=== PATIENT | female | born 1955 | race Caucasian/White ===

== ENCOUNTER 2017-01-04 08:47 | Emergency (ER) | payer OTHER, MEDICAID ==
[~2017-01-04] VITALS: Wt 79.0 kg
[~2017-01-04 08:47] MED LIST: AMIT25TA9 PO; ASPI-535 PO; BENA5TAB2 PO; GLIM4TAB PO; MTF1000T PO; PANT40TA4 PO; SIMV40TA2 PO; SITA50TA2 PO
[2017-01-04 09:13] LABS: URINE BLOOD (Dip) POC Trace-intact (NEGATIVE)
--- NOTE | 2017-01-04 09:29 | ERD ---
ER Documentation Chief Complaint Date/Time DATE: 01/04/17 TIME: 09:25 Chief Complaint DYSURIA FOR THE PAST 4 DAYS. NO HEMATURIA. MORE FREQUENCY STATED HPI 61-year-old female who presents to the emergency room for dysuria for about 4 days. Stated that she has been prescribed Bactrim last 01/02/2017. Denies headache, loss of consciousness, dizziness, blurry vision, changes in vision, photophobia, facial pain, ear pain, throat pain, difficulty swallowing, neck pain, shoulder pain, chest pain, cough, hemoptysis, abdominal pain, back pain, loss of appetite, nausea, vomiting, hematochezia, diarrhea, constipation, hematuria, bladder and bowel incontinences, extremity weakness, extremity tenderness, numbness or tingling sensation, direct trauma, difficulty walking, recent travel, recent exposure to illness, recent antibiotic use in the last 3 months, fever, chills. Allergy: Penicillin. PMH: Diabetes, hypertension. Family medical history: Denies. Medications: Metformin, metoprolol, benazepril, simvastatin, aspirin. Surgery: Cholecystectomy, hysterectomy. Primary Social History: Not working at this time. Denies smoking, use of alcohol, use of illegal drugs. ROS All systems reviewed and are negative except as per history of present illness. Medications Home Meds Active Scripts Phenazopyridine Hcl* (Pyridium*) 200 Mg Tab, 200 MG PO TID Y for URINARY PAIN, # 6 TAB Prov:RACHEL JUAREZ 01/04/17 Ciprofloxacin Hcl* (Ciprofloxacin Hcl*) 500 Mg Tablet, 500 MG PO BID for 7 Days , TAB Prov:RACHEL JUAREZ 01/04/17 Sitagliptin* (Januvia*) 50 Mg Tablet, 50 MG PO DAILY, #30 TAB Prov:MYRA MALDONADO MD 06/25/16 Pantoprazole* (Pantoprazole*) 40 Mg Tablet.dr, 40 MG PO DAILY@06 for 30 Days, # 30 Prov:MYRA MALDONADO MD 06/25/16 Reported Medications Metformin* (Glucophage*) 1,000 Mg Tablet, 1000 MG PO BID, #60 TAB 06/23/16 Glimepiride* (Glimepiride*) 4 Mg Tablet, 4 MG PO BID, TAB 02/09/16 Amitriptyline Hcl* (Amitriptyline Hcl*) 25 Mg Tablet, 25 MG PO HS, TAB 09/20/14 Benazepril Hcl* (Benazepril Hcl*) 5 Mg Tablet, 5 MG PO DAILY 11/04/11 Aspirin Ec (Aspir 81) 81 Mg Tablet.dr, 81 MG PO DAILY 11/04/11 Simvastatin* (Zocor*) 40 Mg Tablet, 40 MG PO DAILY 11/04/11 Allergies Allergies: Coded Allergies: Penicillins (Verified Allergy, Unknown, 01/04/17) PMhx/Soc History of Surgery: Yes (PARTIAL HYSTERECTOMY 1989, GALLBLADDER SURGERY, MULTIPLE HAND SURGERIES ) Anesthesia Reaction: No Hx Neurological Disorder: No Hx Respiratory Disorders: No Hx Cardiac Disorders: No Hx Psychiatric Problems: No Hx Miscellaneous Medical Probl: No Hx Alcohol Use: No Hx Substance Use: No Hx Tobacco Use: No Smoking Status: Never smoker Physical Exam Vitals Vital Signs Date Time Temp Pulse Resp B/P Pulse Ox O2 Delivery O2 Flow Rate FiO2 01/04/17 08:51 97.0 72 21 122/65 98 Physical Exam CONSTITUTIONAL: Well-appearing; well-nourished. HEAD: Normocephalic; atraumatic. EYES: Conjunctiva clear, sclera non-icteric, EOM intact. PERRL Ears: Hearing intact. EACs clear, TMs non-bulging, non-inflamed, translucent & mobile, ossicles normal appearance, No obstructions, no erythema, no discharges Nose: No obstructions. No polyps. No external lesions. Mucosa non-inflamed. No external lesions, septum and turbinates normal. No rhinorrhea. No discharges. Frontal sinus is non-tender to palpation. Maxillary sinus is non-tender to palpation. MOUTH: Moist mucous membranes, no lesion, no obstructions, no vesicles, no thrush, patent airway Throat: Uvula in midline. Right tonsil is +1 with no erythema, no exudate. Left tonsil is +1 with no erythema, no exudate. Tolerating secretions well. Good gag reflex. Patent airway. Neck: Supple, without lesions, bruits, or adenopathy. No mass. Thyroid non- enlarged and non-tender to palpation. CHEST: Symmetrical chest. Respirations even and not labored. No retractions noted. CARDIOVASCULAR: Normal S1, S2. RRR. No murmurs, gallops. RESPIRATORY: Normal chest excursion with respiration; breath sounds clear and equal bilaterally; no wheezes, rhonchi, or rales. Breathing even and unlabored. Speaking in clear, full, and complete sentences w/ ease. ABDOMEN: Normal bowel sounds normal. Soft, round, non-distended, non-guarding, no tenderness, no rebound, no organomegaly, no masses, no pulsating abdominal mass. No hernia. No peritoneal signs. Able to jump 5 times without pain to right lower abdomen. : No CVA tenderness. Has suprapubic tenderness. BACK: Symmetrical shoulder. Spine is midline without deformity, tenderness. No evidence of trauma or deformity. PELVIS: Stable pelvis. No evidence of trauma or deformity. MUSCULOSKELETAL: Normal gait and station. No misalignment, asymmetry, crepitation, defects, tenderness, masses, effusions, decreased range of motion, instability, atrophy or abnormal strength or tone in the head, neck, spine, ribs , pelvis or extremities. No calf tenderness. NEUROVASCULAR: Distal pulses are present. Pedal pulse are present, equal, and normal. Capillary refills are < 2 seconds. NEUROLOGIC: Alert and oriented x4. Speaks full and clear sentences. Cranial Nerves II-XII normal. Sensation to pain, touch, and proprioception normal. Grossly unremarkable. No neurologic deficits. Romberg test is negative. PSYCHOLOGICAL: The patients mood and manner are appropriate. No hallucinations , delusions. Not SI. Not HI. Has the capacity to decide for self SKIN: Normal for age and ethnicity; warm; dry; good turgor; no apparent lesions or exudates. No rashes, hives, discoloration. Intact. Results 24 hrs Laboratory Tests Test 01/04/17 09:10 01/04/17 09:13 Urine Color LT. YELLOW Urine Clarity CLEAR Urine pH 6.0 Urine Specific Eloy 1.025 Urine Ketones NEGATIVE Urine Nitrite NEGATIVE Urine Bilirubin NEGATIVE Urine Urobilinogen 0.2 E.U./dL Urine Leukocyte Esterase 1+ Urine Microscopic RBC 0-2/HPF Urine Microscopic WBC 5-10/HPF Urine Squamous Epithelial Cells FEW Urine Bacteria FEW Urine Hemoglobin NEGATIVE Urine Glucose NEGATIVE% Urine Total Protein TRACE Bedside Urine pH (LAB) 6.0 Bedside Urine Protein (LAB) 1+ Bedside Urine Glucose (UA) Negative Bedside Urine Ketones (LAB) Negative Bedside Urine Blood Trace-intact Bedside Urine Nitrite (LAB) Negative Bedside Urine Leukocyte Esterase (L 2+ Procedures/MDM Examination: Please see physical examination. Disease process, medical treatment was explained to the patient and family member. They verbalized understanding and agreed with the diagnostic tests, medical treatment, and follow-up care. Urinalysis: Reviewed. Treatment: None. Re-evaluation: Denies headache, dizziness, neck pain, chest pain, back pain, shoulder pain abdominal pain, back pain, pelvic pain. No nausea and vomiting. No right upper abdominal pain on palpation. No right lower abdominal pain on palpation. Patient ambulatory with steady gait and without pain to abdomen when walking. No peritoneal signs. Lung sounds are clear to auscultation. No neurological deficits. Consultation: None. Differential diagnosis: Pyelonephritis versus urinary tract infection versus complicated UTI versus dysuria Medical decision makin-year-old female who presents to the emergency room for dysuria for about 4 days. Stated that she has been prescribed Bactrim last . Patient's complaint, patient's history about her complaint, my physical findings, diagnostic test results, my reevaluation are consistent with my final diagnosis of urinary tract infection, dysuria. Medications prescribed are the following: Ciprofloxacin. Pyridium. Patient and family member are made aware of the side effects and adverse reactions of the medications prescribed. Instructed on when to seek emergent and medical attention in case allergic/anaphylactic reactions or severe side effects and or adverse reactions to medications. Patient and family member verbalized understanding. Patient was also instructed that she might notice a discoloration of urine due to Pyridium. Patient instructed Instructed to follow-up with his PCP in 24-48 hours. Stated that she will see her PCP in the next 24 hours. Instructed to Call 911 for chest pain, shortness of breath. Advised to come back here in ED as soon as possible for severity of symptoms which includes but not limited to: any new symptoms; shortness of breath/difficulty of breathing; cardiovascular changes; severe gastrointestinal symptoms; signs and symptoms of bleeding and or infection; signs of compartment syndrome/neurovascular changes; neurological changes/deficits. Patient and family member verbalized understanding. Upon discharge, patient is alert and oriented x 4, speaks full and clear sentences, denies pain, has no neurological deficits, has no neurovascular deficits, difficulty of breathing. Breathing even and unlabored. Lung sounds are clear to auscultation. Not in distress. Appears comfortable. Ambulatory with steady gait. Appears satisfied with care provided here in ED. Departure Diagnosis: Primary Impression: Dysuria Additional Impression: UTI (lower urinary tract infection) Condition: Good Additional Instructions: Patient instructed Instructed to follow-up with his PCP in 24-48 hours. Stated that she will see her PCP in the next 24 hours. Instructed to Call 911 for chest pain, shortness of breath. Advised to come back here in ED as soon as possible for severity of symptoms which includes but not limited to: any new symptoms; shortness of breath/difficulty of breathing; cardiovascular changes; severe gastrointestinal symptoms; signs and symptoms of bleeding and or infection; signs of compartment syndrome/neurovascular changes; neurological changes/deficits. Patient and family member verbalized understanding. RACHEL JUAREZ Jan 04, 2017 09:29
[2017-01-04 09:44] LABS: ADD UMIC YES; URINE BILIRUBIN (Dip) NEGATIVE (NEGATIVE); URINE BLOOD (Dip) NEGATIVE (NEGATIVE); URINE COLOR LT. YELLOW (YELLOW); URINE GLUCOSE (Dip) NEGATIVE (NEGATIVE); URINE KETONES (Dip) NEGATIVE (NEGATIVE); URINE LEUKOCYTE ESTERASE (Dip) 1+ (NEGATIVE); URINE NITRITE (Dip) NEGATIVE (NEGATIVE); URINE TOTAL PROTEIN (Dip) TRACE (NEGATIVE); URINE UROBILINOGEN (Dip) 0.2 E.U./dL (0.1-1.0)
[2017-01-04 09:55] LABS: BACTERIA,URINE FEW; SQUAMOUS EPITHELIAL CELL,UR FEW; URINE RBCS 0-2 /HPF (0)
[2017-01-04] MEDS ORDERED: CIPR500T4 PO (10:19)
[2017-01-04] MEDS ORDERED: PHEN-538 PO (10:20)
== END 2017-01-04 10:25 | disposition home or self-care (01) ==
LOC: FTE 08:47
DX: R30.0 Dysuria (principal); N39.0 Urinary tract infection, site not specified; I10 Essential (primary) hypertension; E11.9 Type 2 diabetes mellitus without complications; Z79.82 Long term (current) use of aspirin; Z79.84 Long term (current) use of oral hypoglycemic drugs
CPT/HCPCS: 81001; 81003; 87086; 99283

== ENCOUNTER 2017-05-22 06:39 | Emergency (ER) | payer OTHER ==
[~2017-05-22] VITALS: Ht 152.4 cm; Wt 77.0 kg
[~2017-05-22 06:39] MED LIST changes: +CIPR500T4 PO; +PHEN-538 PO
[2017-05-22 06:41] VITALS: Ht 152.4 cm; Wt 77.0 kg
--- NOTE | 2017-05-22 07:55 | RADRPT ---
PROCEDURE: LEFT knee x-ray CLINICAL INDICATION: fall - knee pain TECHNIQUE: AP, lateral, and oblique views of the knee were obtained. COMPARISON: None FINDINGS: No acute fracture or dislocation is seen. There is normal mineralization. There are no significant degenerative changes. There is no joint effusion. There is no significant soft tissue swelling. IMPRESSION: Unremarkable plain radiographs of the left knee. RPTAT: EE Physician Jg Date Time Electronically viewed and signed by Fran Clark Physician on 05/22/2017 07:55 /
[2017-05-22] MEDS ORDERED: NAPR-260 PO (08:09)
--- NOTE | 2017-05-22 08:32 | ERD ---
ER Documentation Chief Complaint Date/Time DATE: 05/22/17 TIME: 08:26 Chief Complaint pt bib family with c/o left knee pain, s/p [facility] trip and fall yesterday, HPI 61-year-old female coming in complaining of left knee pain after she fell off a roof yesterday. She states that her knee twisted. Her pain is worse with ambulation. She has not taken any medications for her pain. Rates the pain a 9 out of 10. Pain is sharp. She has used icy hot with no alleviation of symptoms. She has no previous history of knee injury in the past. Medical history: Diabetes, hypercholesterolemia, hypertension Allergies to medications: Penicillin ROS All systems reviewed and are negative except as per history of present illness. Medications Home Meds Active Scripts Naproxen* (Naprosyn*) 500 Mg Tablet, 500 MG PO BID Y for PAIN AND/OR INFLAMMATION, #30 TAB Prov:KYLAH DOE PA-C 05/22/17 Phenazopyridine Hcl* (Pyridium*) 200 Mg Tab, 200 MG PO TID Y for URINARY PAIN, # 6 TAB Prov:RACHEL JUAREZ 01/04/17 Ciprofloxacin Hcl* (Ciprofloxacin Hcl*) 500 Mg Tablet, 500 MG PO BID for 7 Days , TAB Prov:RACHEL JUAREZ 01/04/17 Sitagliptin* (Januvia*) 50 Mg Tablet, 50 MG PO DAILY, #30 TAB Prov:MYRA MALDONADO MD 06/25/16 Pantoprazole* (Pantoprazole*) 40 Mg Tablet.dr, 40 MG PO DAILY@06 for 30 Days, # 30 Prov:MYRA MALDONADO MD 06/25/16 Reported Medications Metformin* (Glucophage*) 1,000 Mg Tablet, 1000 MG PO BID, #60 TAB 06/23/16 Glimepiride* (Glimepiride*) 4 Mg Tablet, 4 MG PO BID, TAB 02/09/16 Amitriptyline Hcl* (Amitriptyline Hcl*) 25 Mg Tablet, 25 MG PO HS, TAB 09/20/14 Benazepril Hcl* (Benazepril Hcl*) 5 Mg Tablet, 5 MG PO DAILY 11/04/11 Aspirin Ec (Aspir 81) 81 Mg Tablet.dr, 81 MG PO DAILY 11/04/11 Simvastatin* (Zocor*) 40 Mg Tablet, 40 MG PO DAILY 11/04/11 Allergies Allergies: Coded Allergies: Penicillins (Verified Allergy, Unknown, 01/04/17) PMhx/Soc History of Surgery: Yes (Gallbladder, Bilateral Eye, Bilateral Wrist) Anesthesia Reaction: No Hx Neurological Disorder: No Hx Respiratory Disorders: No Hx Cardiac Disorders: Yes (HTN, HLD) Hx Psychiatric Problems: No Hx Miscellaneous Medical Probl: Yes (DM) Hx Alcohol Use: No Hx Substance Use: No Hx Tobacco Use: No Smoking Status: Never smoker Physical Exam Vitals Vital Signs Date Time Temp Pulse Resp B/P Pulse Ox O2 Delivery O2 Flow Rate FiO2 05/22/17 06:41 98.3 62 16 115/57 100 Physical Exam GENERAL: The patient is well-appearing, well-nourished, in no acute distress CHEST: Clear to auscultation bilaterally. There are no rales, wheezes or rhonchi. HEART: Regular rate and rhythm. No murmurs, clicks, rubs or gallops. No S3 or S4. EXTREMITIES: Equal pulses bilaterally. There is no peripheral clubbing, cyanosis or edema. No focal swelling or erythema. Full range of motion. Grossly neurovascularly intact. Tender to palpation over the medial aspect of the left knee. No valgus or varus deformity. Decreased strength secondary to pain. No obvious deformity to the left knee. No tenderness to palpation of the left patella. NEUROLOGIC: Alert and oriented. Cranial nerves II through XII intact. Motor strength in all 4 extremities with 5 out of 5 strength. Sensation grossly intact. Normal speech and gait. Babinski negative. DTR 2+ throughout. SKIN: There is no apparent rash or petechiae. The skin is warm and dry. Procedures/MDM DIAGNOSTIC IMAGING REPORT Patient: RANI OROZCO : 1955 Age: 61 Sex: F MR #: [id number] DOS: 05/22/17 0719 Ordering MD: ABBIE DOE PA-C Location: [facility] Room/Bed: PROCEDURE: LEFT knee x-ray CLINICAL INDICATION: fall - knee pain TECHNIQUE: AP, lateral, and oblique views of the knee were obtained. COMPARISON: None FINDINGS: No acute fracture or dislocation is seen. There is normal mineralization. There are no significant degenerative changes. There is no joint effusion. There is no significant soft tissue swelling. IMPRESSION: Unremarkable plain radiographs of the left knee. ER Course: Knee immobilizer and crutches given to the ED patient. Patient was neuro intact pre-and post immobilizer application. MDM: 61-year-old female complaining of left knee pain after fall yesterday. I have low suspicion for acute fracture dislocation. I have low suspicion for tendon or ligament rupture or injury. I have low suspicion for vascular injury. Patient's x-rays are within normal limits and exam is within normal limits. Patient likely sustained a knee contusion. She will be placed in the immobilizer and recommend follow-up with orthopedics within 1-2 days for close evaluation. Patient is told symptoms change or worsen to return to the ER. All questions answered at time of discharge. Patient is discharged with pain medication. Departure Diagnosis: Primary Impression: Knee pain Condition: Stable Patient Instructions: Knee Sprain Referrals: [facility] YOU HAVE RECEIVED A MEDICAL SCREENING EXAM AND THE RESULTS INDICATE THAT YOU DO NOT HAVE A CONDITION THAT REQUIRES URGENT TREATMENT IN THE EMERGENCY DEPARTMENT. FURTHER EVALUATION AND TREATMENT OF YOUR CONDITION CAN WAIT UNTIL YOU ARE SEEN IN YOUR DOCTORS OFFICE WITHIN THE NEXT 1-2 DAYS. IT IS YOUR RESPONSIBILITY TO MAKE AN APPOINTMENT FOR FOLOW-UP CARE. IF YOU HAVE A PRIMARY DOCTOR --you should call your primary doctor and schedule an appointment IF YOU DO NOT HAVE A PRIMARY DOCTOR YOU CAN CALL OUR PHYSICIAN REFERRAL HOTLINE AT IF YOU CAN NOT AFFORD TO SEE A PHYSICIAN YOU CAN CHOSE FROM THE FOLLOWING [facility] [address] [facility]. [facility] [address] [facility] [address] [facility]. [facility] [address] [facility]. [facility] [address] [facility]. [facility]. [address] Additional Instructions: FOLLOW UP WITH YOUR PRIMARY CARE PHYSICIAN TOMORROW.Return to this facility if you are not improving as expected. KYLAH DOE PA-C May 22, 2017 08:32
== END 2017-05-22 08:34 | disposition home or self-care (01) ==
LOC: FTE 06:39
DX: M25.562 Pain in left knee (principal); I10 Essential (primary) hypertension; E11.9 Type 2 diabetes mellitus without complications; Z79.82 Long term (current) use of aspirin; Z79.84 Long term (current) use of oral hypoglycemic drugs
CPT/HCPCS: 73562

== ENCOUNTER 2018-05-24 12:08 | Emergency (ER) | END 2018-05-24 15:00 | disposition home or self-care (01) ==

== ENCOUNTER 2019-01-13 18:01 | Emergency (ER) | payer OTHER ==
[~2019-01-13] VITALS: Ht 152.4 cm; Wt 71.2 kg
[~2019-01-13 18:01] MED LIST changes: -BENA5TAB2 PO; +BENA5TAB33 PO; +IBUP-1542 PO; +NAPR-985 PO; +ONDA4TAB13 PO
[2019-01-13 18:21] VITALS: Ht 152.4 cm; Wt 71.2 kg
[2019-01-13] MEDS ORDERED: ONDANSETRON 4 MG INJ IV STA ×2 (20:54→21:02)
[2019-01-13] MEDS ORDERED: SOD CHLORIDE 0.9% 1,000 ML IV STA (21:02)
[2019-01-13] MEDS ORDERED: LIRA0.6P2 SQ (21:19)
[2019-01-13] MEDS ORDERED: LATA2.5D2 BOTH EYES (21:19)
[2019-01-13] MEDS ORDERED: TIMO5DRO30 BOTH EYES (21:19)
[2019-01-13] MEDS ORDERED: INSU100I33 SQ (21:19)
[2019-01-13] MEDS ORDERED: SERT25TA83 PO (21:19)
[2019-01-13] MEDS ORDERED: NOVO3I SC (21:20)
[2019-01-13] MEDS ORDERED: IBUPROFEN 600 MG TAB PO ONE (21:30)
[2019-01-13] MEDS ORDERED: CEPH-443 PO (22:15)
[2019-01-13] MEDS ORDERED: ONDA4TAB8 PO (22:15)
[2019-01-13] MEDS ORDERED: LIDOCAINE/MYLANTA 40 ML BTL PO STA (22:22)
[2019-01-13] MEDS ORDERED: BELLADONNA/PHENOBARBITAL TAB PO STA (22:22)
--- NOTE | 2019-01-13 22:25 | ERD ---
ER Documentation Chief Complaint Chief Complaint c/o ap, n/v and diarrhea since this morning. +TYSON hx dm. BS 129 HPI This is a 63-year-old with multiple complaints here today including mostly a few episodes of clear nonbloody nonbilious emesis and diarrhea beginning today as well as sharp nonexertional non-epigastric abdominal pain which she has had multiple times in the past and 1 day of dysuria and increased urinary frequency. She also states she feels weak and has a headache. She denies fevers or chills, no loss of consciousness, no vaginal discharge, no complaints of chest pain or shortness of breath ROS All systems reviewed and are negative except as per history of present illness. Medications Home Meds Active Scripts Ondansetron Hcl* (Zofran*) 4 Mg Tablet, 4 MG PO Q8H PRN for NAUSEA AND/OR VOMITING, #20 TAB Prov:BA BLACKWELL MD 01/13/19 Cephalexin* (Keflex*) 500 Mg Capsule, 500 MG PO QID for 5 Days, CAP Prov:BA BLACKWELL MD 01/13/19 Ondansetron Hcl* (Zofran*) 4 Mg Tab, 4 MG PO Q6H PRN for NAUSEA AND OR VOMITING, #30 TAB Prov:ANGELIA LISA DO 05/24/18 Pantoprazole* (Pantoprazole*) 40 Mg Tablet., 40 MG PO DAILY@06 for 30 Days, #30 Prov:MYRA MALDONADO MD 06/25/16 Reported Medications Insulin Aspart* (Novolog Insulin Pen*) 100 Unit/Ml Soln, 10 UNIT SC WITH MEALS, EA 01/13/19 Timolol Maleate* (Timoptic*) 0.5%-5ml Opht, 1 DROP BOTH EYES BID, #1 EA 01/13/19 Latanoprost (Latanoprost) 2.5 Ml Drops, 1 DROP BOTH EYES QHS, #1 BOTTLE 01/13/19 Insulin Glargine,Hum.rec.anlog (Basaglar Kwikpen U-100) 100 Unit/1 Ml Insuln.pen, 30 UNIT SQ QPM NJECT 30 UNITS BY SUBCUTANEOUS ROUTE EVERY EVENING 01/13/19 Liraglutide (Victoza 3-Darin) 0.6 Mg/0.1 Ml Pen.injctr, 1.2 MG SQ DAILY, SYR 01/13/19 Sertraline Hcl* (Sertraline Hcl*) 25 Mg Tablet, 25 MG PO QHS for 90 Days, #90 01/13/19 Metformin* (Glucophage*) 1,000 Mg Tablet, 1000 MG PO BID, #60 TAB 06/23/16 Amitriptyline Hcl* (Amitriptyline Hcl*) 25 Mg Tablet, 25 MG PO HS, TAB 09/20/14 Benazepril Hcl* (Benazepril Hcl*) 5 Mg Tablet, 5 MG PO DAILY 11/04/11 Simvastatin* (Zocor*) 40 Mg Tablet, 40 MG PO DAILY 11/04/11 Discontinued Reported Medications Glimepiride* (Glimepiride*) 4 Mg Tablet, 4 MG PO BID, TAB 02/09/16 Aspirin Ec (Aspir 81) 81 Mg Tablet.dr, 81 MG PO DAILY 11/04/11 Discontinued Scripts Ibuprofen* (Ibuprofen*) 600 Mg Tablet, 600 MG PO Q6H PRN for PAIN, #30 TAB Prov:ANGELIA LISA DO 05/24/18 Naproxen* (Naprosyn*) 500 Mg Tablet, 500 MG PO BID PRN for PAIN AND/OR INFLAMMATION, #30 TAB Prov:KYLAH DOE PA-C 05/22/17 Phenazopyridine Hcl* (Pyridium*) 200 Mg Tab, 200 MG PO TID PRN for URINARY PAIN, #6 TAB Prov:RACHEL JUAREZ 01/04/17 Ciprofloxacin Hcl* (Ciprofloxacin Hcl*) 500 Mg Tablet, 500 MG PO BID for 7 Days, TAB Prov:RACHEL JUAREZ 01/04/17 Sitagliptin* (Januvia*) 50 Mg Tablet, 50 MG PO DAILY, #30 TAB Prov:MYRA MALDONADO MD 06/25/16 Allergies Allergies: Coded Allergies: Penicillins (Verified Allergy, Unknown, 01/13/19) PMhx/Soc Hypertension, diabetes mellitus, history of cholecystectomy, gastritis History of Surgery: Yes (Gallbladder, Bilateral Eye, Bilateral Wrist) Anesthesia Reaction: No Hx Neurological Disorder: No Hx Respiratory Disorders: No Hx Cardiac Disorders: Yes (HTN, HLD) Hx Psychiatric Problems: No Hx Miscellaneous Medical Probl: Yes (DM) Hx Alcohol Use: No Hx Substance Use: No Hx Tobacco Use: No Smoking Status: Never smoker Physical Exam Vitals Vital Signs Date Temp Pulse Resp B/P (MAP) Pulse Ox O2 O2 Flow FiO2 Time Delivery Rate 01/13/19 99.8 77 12 103/65 98 Room Air 21:24 (78) 01/13/19 37.7 21:15 01/13/19 99.8 86 12 109/67 98 Room Air 20:46 (81) 01/13/19 100.9 95 20 135/61 97 18:21 (85) Physical Exam GENERAL: Well-developed, well-nourished, well-hydrated, febrile HEENT: Moist mucous membranes, pink conjunctiva, no cervical spine tenderness or step-off deformities, no goiter, no jaundice or icterus, extraocular movements intact without pain. No submandibular induration, and no pharyngeal erythema NEURO: Alert and oriented 3, cranial nerves II through XII intact bilaterally, pupils equal round reactive to light, no focal deficits or facial asymmetry, sensation intact distally Strength 5/5 in upper and lower extremities bilaterally CARDIAC: Regular rate and rhythm, no murmurs rubs or gallops LUNGS: Clear bilaterally no wheezing crackles or stridor ABDOMEN: Soft nontender, no guarding, no rigidity, no rebound, no psoas sign no obturator sign. Normoactive bowel sounds SKIN: Warm and dry to touch, no abrasions, contusions, or hematomas, no lacerations, no ecchymosis, no target lesions, and without ulcers EXTREMITIES: No clubbing cyanosis or edema, calves are bilaterally symmetrical, no Homans sign, no popliteal cord sign. Distal pulses equal and bilateral PSYCH: Normal affect without agitation or irritability Result Diagram: 01/13/19204401/13/192044 Results 24 hrs Laboratory Tests Test 01/13/19 18:23 01/13/19 20:45 Bedside Glucose 129 mg/dL White Blood Count 10.7 10^3/ul Red Blood Count 4.66 10^6/ul Hemoglobin 13.9 g/dl Hematocrit 41.7 % Mean Corpuscular Volume 89.5 fl Mean Corpuscular Hemoglobin 29.8 pg Mean Corpuscular Hemoglobin Concent 33.3 g/dl Red Cell Distribution Width 13.2 % Platelet Count 149 10^3/UL Mean Platelet Volume 12.0 fl Immature Granulocytes % 0.400 % Neutrophils % 82.7 % Lymphocytes % 11.7 % Monocytes % 4.0 % Eosinophils % 0.9 % Basophils % 0.3 % Nucleated Red Blood Cells % 0.0 /100WBC Immature Granulocytes # 0.040 10^3/ul Neutrophils # 8.8 10^3/ul Lymphocytes # 1.3 10^3/ul Monocytes # 0.4 10^3/ul Eosinophils # 0.1 10^3/ul Basophils # 0.0 10^3/ul Nucleated Red Blood Cells # 0.0 10^3/ul Urine Color YELLOW Urine Clarity SLIGHTLY CLOUDY Urine pH 5.0 Urine Specific [place] 1.027 Urine Ketones TRACE mg/dL Urine Nitrite NEGATIVE mg/dL Urine Bilirubin NEGATIVE mg/dL Urine Urobilinogen NEGATIVE mg/dL Urine Leukocyte Esterase 2+ Max/ul Urine Microscopic RBC 2 /HPF Urine Microscopic WBC 28 /HPF Urine Squamous Epithelial Cells FEW /HPF Urine Mucus FEW /HPF Urine Hemoglobin 1+ mg/dL Urine Glucose NEGATIVE mg/dL Urine Total Protein NEGATIVE mg/dl Sodium Level 139 mmol/L Potassium Level 4.0 mmol/L Chloride Level 99 mmol/L Carbon Dioxide Level 25 mmol/L Anion Gap 15 Blood Urea Nitrogen 18 mg/dl Creatinine 0.56 mg/dl Est Glomerular Filtrat Rate mL/min > 60 mL/min Glucose Level 210 mg/dl Calcium Level 9.8 mg/dl Total Bilirubin 0.5 mg/dl Direct Bilirubin 0.00 mg/dl Indirect Bilirubin 0.5 mg/dl Aspartate Amino Transf (AST/SGOT) 52 IU/L Alanine Aminotransferase (ALT/SGPT) 40 IU/L Alkaline Phosphatase 89 IU/L Total Protein 7.8 g/dl Albumin 4.7 g/dl Globulin 3.10 g/dl Albumin/Globulin Ratio 1.51 Lipase 70 U/L Current Medications Medications Dose Sig/Shaun Start Time Status Last (Trade) Ordered Route PRN Stop Time Admin Dose Reason Admin Ondansetron 4 mg ONCE STAT 01/13/19 DC HCl (Zofran IV 20:54 01/13/19 Inj) 20:57 Sodium 1,000 ml @ Q1H STAT 01/13/19 DC 01/13/19 Chloride 1,000 mls/hr IV 21:02 01/13/19 21:11 22:01 Ondansetron 4 mg ONCE STAT 01/13/19 DC 01/13/19 HCl (Zofran IV 21:02 01/13/19 21:15 Inj) 21:04 Ibuprofen 600 mg ONCE ONCE 01/13/19 DC 01/13/19 (Motrin) PO 21:30 01/13/19 21:15 21:31 Ceftriaxone 50 ml @ ONCE ONCE 01/13/19 UNV Sodium 100 mls/hr IVPB 22:30 01/13/19 22:59 Procedures/MDM IV line was established patient was placed on shelter monitor rhythm strip reve aled a sinus rhythm at about 80 bpm with upright P and T waves. Patient was afebrile I administered 1 L normal saline IV, Zofran 4 mg IV, ibuprofen 600 mg p.o. x1. EKG performed, read by me: 77 bpm, normal sinus rhythm, normal axis, no acute ST segment changes, narrow QRS complex, with good R-wave progression in precordial leads. CBC was within normal limits, electrolytes revealed mild dehydration, liver function tests normal, urinalysis positive for infection. Patient did have mild sharp abdominal pain which she has had in the past and I administered GI cocktail p.o., I also administered ceftriaxone 1 g IV for acute UTI. I suspect her symptoms are mostly caused by her acute urinary tract infection and she will be discharged with a antibiotic prescription and recommendations for follow-up and return precautions. Differential diagnoses considered, included but not limited to acute coronary syndrome, pulmonary embolism, aortic dissection, abdominal aortic aneurysm, sepsis, stroke, meningitis, encephalitis, pneumonia, appendicitis, cholecystitis, bowel obstruction, pyelonephritis, nephrolithiasis, cystitis, as well as metabolic, hematologic, and electrolyte abnormalities. As well as abscess, cellulitis, fractures, and dislocations. Patient feels much better at this time, and vital signs are normal, symptoms have improved. I did give strict instructions to return to the ED if symptoms continue or worsen, patient will otherwise follow-up with primary care physician. Patient understood instructions and agreed to plan. Disclaimer: Inadvertent spelling and grammatical errors are likely due to EHR/dictation software use and do not reflect on the overall quality of patient care. Also, please note that the electronic time recorded on this note does not necessarily reflect the actual time of the patient encounter. Departure Diagnosis: Primary Impression: UTI (lower urinary tract infection) Additional Impressions: Vomiting and diarrhea Epigastric abdominal pain Condition: Good Patient Instructions: Bladder Infection, Female (Adult) ZOHRABIAN,BA MD Jan 13, 2019 22:25
[2019-01-13] MEDS ORDERED: CEFTRIAXONE 1 GM/50 ML (PMX) 50 ML IVPB ONE (22:30)
[2019-01-13 22:56] VITALS: BP 92/66; PULSE 84; RESP 12
== END 2019-01-13 23:40 | disposition home or self-care (01) ==
LOC: E/R 18:01
DX: N39.0 Urinary tract infection, site not specified (principal); R19.7 Diarrhea, unspecified; I10 Essential (primary) hypertension; E11.9 Type 2 diabetes mellitus without complications; Z79.4 Long term (current) use of insulin
CPT/HCPCS: 36415; 80053; 81001; 82962; 83690; 85025; 87086; 93005; 96374; 96375; 99284; J0696; J2405; J7030

== ENCOUNTER → 2019-02-06 | Emergency (ER) | payer OTHER ==
[~2019-02-06] VITALS: Ht 167.6 cm; Wt 72.1 kg
[~2019-02-06] MED LIST changes: -ASPI-535 PO; +ATOR40TA68 PO; +CEPH-443 PO; -GLIM4TAB PO; +INSU100I33 SQ; +IOHEXOL 300MG/ML 150 ML BTL ONE; +LATA2.5D2 BOTH EYES; +LIRA0.6P2 SQ; +METF100010 PO; -NAPR-985 PO; +NOVO3I SC; +ONDA4TAB8 PO; +ONDANSETRON 4 MG INJ IV STA; -PHEN-538 PO; +SERT25TA83 PO; -SITA50TA2 PO; +SOD CHLORIDE 0.9% 1,000 ML IV STA; +SOD CHLORIDE 0.9% 100 ML ONE; +TIMO5DRO30 BOTH EYES; +morphine 4 MG/ML VIAL IV STA
[2019-02-06 11:03] VITALS: Ht 167.6 cm; Wt 72.1 kg
--- NOTE | 2019-02-06 12:49 | ERD ---
ER Documentation Chief Complaint Chief Complaint Complains of abdominal and leg pain x 2 days HPI This is a 63-year-old female with a history of insulin-dependent diabetes mellitus and hypertension. Patient presents to the emergency department complaining of right lower quadrant pain. She indicates the pain has been intermittent for the past 2 weeks. However the past 48 hours the pain has significantly intensified to 10 out of 10 in intensity. She indicates that the pain now radiates to the back. There is no alleviating or exacerbating factors. She states the pain also radiates down her right leg. She denies any changes in her bladder or bowel frequency. She had not no fevers or shaking or chills. She denies any saddle anesthesia. She denies any trauma to the abdomen or back. She indicates she never had any similar pain in the past. Her past surgical history includes lipoma removals and total abdominal hysterectomy. ROS All systems reviewed and are negative except as per history of present illness. Medications Home Meds Reported Medications Atorvastatin* (Atorvastatin*) 40 Mg Tablet, 40 MG PO QHS, #30 TAB 02/06/19 Metformin Hcl* (Metformin Hcl*) 1,000 Mg Tablet, 1000 MG PO WITH BREAKFAST DINNE, #60 TAB 02/06/19 Sertraline Hcl* (Sertraline Hcl*) 25 Mg Tablet, 25 MG PO DAILY, #30 TAB 02/06/19 Benazepril Hcl* (Benazepril Hcl*) 5 Mg Tablet, 5 MG PO DAILY, #30 TAB 02/06/19 Amitriptyline Hcl* (Amitriptyline Hcl*) 25 Mg Tablet, 25 MG PO QHS, #30 TAB 02/06/19 Insulin Aspart* (Novolog Insulin Pen*) 100 Unit/Ml Soln, 15 UNIT SC WITH MEALS, EA QAM AND QPM 01/13/19 Latanoprost (Latanoprost) 2.5 Ml Drops, 1 DROP BOTH EYES QHS, #1 BOTTLE 01/13/19 Insulin Glargine,Hum.rec.anlog (Basaglar Kwikpen U-100) 100 Unit/1 Ml Insuln.pen, 40 UNIT SQ QHS 01/13/19 Liraglutide (Victoza 3-Darin) 0.6 Mg/0.1 Ml Pen.injctr, 1.2 MG SQ NOON, SYR 4/8/19 Discontinued Reported Medications Timolol Maleate* (Timoptic*) 0.5%-5ml Opht, 1 DROP BOTH EYES BID, #1 EA 01/13/19 Sertraline Hcl* (Sertraline Hcl*) 25 Mg Tablet, 25 MG PO QHS for 90 Days, #90 01/13/19 Metformin* (Glucophage*) 1,000 Mg Tablet, 1000 MG PO BID, #60 TAB 06/23/16 Amitriptyline Hcl* (Amitriptyline Hcl*) 25 Mg Tablet, 25 MG PO HS, TAB 09/20/14 Benazepril Hcl* (Benazepril Hcl*) 5 Mg Tablet, 5 MG PO DAILY 11/04/11 Simvastatin* (Zocor*) 40 Mg Tablet, 40 MG PO DAILY 11/04/11 Discontinued Scripts Ondansetron Hcl* (Zofran*) 4 Mg Tablet, 4 MG PO Q8H PRN for NAUSEA AND/OR VOMITING, #20 TAB Prov:BA BLACKWELL MD 01/13/19 Cephalexin* (Keflex*) 500 Mg Capsule, 500 MG PO QID for 5 Days, CAP Prov:BA BLACKWELL MD 01/13/19 Ondansetron Hcl* (Zofran*) 4 Mg Tab, 4 MG PO Q6H PRN for NAUSEA AND OR VOMITING, #30 TAB Prov:ANGELIA LISA DO 05/24/18 Pantoprazole* (Pantoprazole*) 40 Mg Tablet.dr, 40 MG PO DAILY@06 for 30 Days, #30 Prov:MYRA MALDONADO MD 06/25/16 Allergies Allergies: Coded Allergies: Penicillins (Verified Allergy, Unknown, 02/06/19) ceftriaxone (Verified Allergy, Unknown, PRURITIS, 02/06/19) PMhx/Soc History of Surgery: Yes (Gallbladder, Bilateral Eye, Bilateral Wrist) Anesthesia Reaction: No Hx Neurological Disorder: No Hx Respiratory Disorders: No Hx Cardiac Disorders: No Hx Psychiatric Problems: No Hx Miscellaneous Medical Probl: Yes (HIGH CHOLESTEROL) Hx Alcohol Use: No Hx Substance Use: No Hx Tobacco Use: No Smoking Status: Never smoker Physical Exam Vitals Vital Signs Date Temp Pulse Resp B/P (MAP) Pulse Ox O2 O2 Flow FiO2 Time Delivery Rate 02/06/19 68 16 115/76 98 Room Air 11:30 (89) 02/06/19 98.7 75 20 133/60 99 11:03 (84) Physical Exam Constitutional:Well-developed. Well-nourished. HEENT:Normocephalic. Atraumatic.Pupils were equal round reactive to light. Moist mucous membranes.No tonsillar exudates. Neck: No nuchal rigidity. No lymphadenopathy. No posterior cervical spine tenderness or step-offs. Respiratory: Not using accessory muscles of respiration.Lungs were clear to auscultation bilaterally. No rhonchi. No rales. No wheezing. Cardiovascular: Regular rate regular rhythm.No murmurs. No rubs were appreciated.S1, S2 normal. Distal pulses are palpable 2+ bilaterally. GI: Abdomen was soft. Right lower quadrant tenderness. No tenderness specifically over McBurney's point. Psoas sign negative. Obturator sign negative.. Non Distended. No pulsatile abdominal masses or bruits. No rebound. No guarding. Bowel sounds were present and normal. Muscle skeletal: Full range of motion of both the upper and lower extremities bilaterally.Normal muscle tone.No assymetrical calf tenderness or swelling. Skin: No petechia, no purpura. No lesions on the palms or the soles of the feet. No maculopapular rash. NEURO: Patient was alert, awake, orientated x3.No facial droop. Gait observed and normal with no ataxia.Speech had regular rate and rhythm. No focal neurological deficits. Result Diagram: 02/06/19 1228 02/06/19 1228 Results 24 hrs Laboratory Tests Test 02/06/19 12:28 02/06/19 13:20 White Blood Count 7.5 10^3/ul Red Blood Count 4.31 10^6/ul Hemoglobin 12.9 g/dl Hematocrit 38.5 % Mean Corpuscular Volume 89.3 fl Mean Corpuscular Hemoglobin 29.9 pg Mean Corpuscular Hemoglobin Concent 33.5 g/dl Red Cell Distribution Width 13.1 % Platelet Count 145 10^3/UL Mean Platelet Volume 11.7 fl Immature Granulocytes % 0.500 % Neutrophils % 55.5 % Lymphocytes % 35.4 % Monocytes % 6.8 % Eosinophils % 1.3 % Basophils % 0.5 % Nucleated Red Blood Cells % 0.0 /100WBC Immature Granulocytes # 0.040 10^3/ul Neutrophils # 4.1 10^3/ul Lymphocytes # 2.6 10^3/ul Monocytes # 0.5 10^3/ul Eosinophils # 0.1 10^3/ul Basophils # 0.0 10^3/ul Nucleated Red Blood Cells # 0.0 10^3/ul Prothrombin Time 13.4 Sec Prothrombin Time Ratio 1.0 INR International Normalized Ratio 1.01 Activated Partial Thromboplast Time 26.3 Sec Sodium Level 142 mmol/L Potassium Level 4.2 mmol/L Chloride Level 106 mmol/L Carbon Dioxide Level 24 mmol/L Anion Gap 12 Blood Urea Nitrogen 12 mg/dl Creatinine 0.46 mg/dl Est Glomerular Filtrat Rate mL/min > 60 mL/min Glucose Level 146 mg/dl Calcium Level 10.0 mg/dl Total Bilirubin 0.3 mg/dl Direct Bilirubin 0.00 mg/dl Indirect Bilirubin 0.3 mg/dl Aspartate Amino Transf (AST/SGOT) 35 IU/L Alanine Aminotransferase (ALT/SGPT) 26 IU/L Alkaline Phosphatase 81 IU/L Troponin I < 0.012 ng/ml Total Protein 7.1 g/dl Albumin 4.1 g/dl Globulin 3.00 g/dl Albumin/Globulin Ratio 1.36 Amylase Level 73 U/L Lipase 174 U/L Urine Color YELLOW Urine Clarity SLIGHTLY CLOUDY Urine pH 5.0 Urine Specific [place] 1.024 Urine Ketones TRACE mg/dL Urine Nitrite NEGATIVE mg/dL Urine Bilirubin NEGATIVE mg/dL Urine Urobilinogen 2+ mg/dL Urine Leukocyte Esterase 3+ Max/ul Urine Microscopic RBC 1 /HPF Urine Microscopic WBC 37 /HPF Urine Squamous Epithelial Cells FEW /HPF Urine Bacteria FEW /HPF Urine Mucus FEW /HPF Urine Hemoglobin NEGATIVE mg/dL Urine Glucose NEGATIVE mg/dL Urine Total Protein NEGATIVE mg/dl Current Medications Medications Dose Sig/Shaun Start Time Status Last (Trade) Ordered Route PRN Stop Time Admin Dose Reason Admin Sodium 1,000 ml @ Q1H STAT 02/06/19 DC 02/06/19 Chloride 1,000 mls/hr IV 11:55 02/06/19 12:08 12:54 Morphine 4 mg ONCE STAT 02/06/19 DC 02/06/19 Sulfate IV 11:55 02/06/19 12:08 (morphine) 11:56 Ondansetron 4 mg ONCE STAT 02/06/19 DC 02/06/19 HCl (Zofran IV 11:55 02/06/19 12:08 Inj) 11:56 IV Flush 10 ml STK-MED 02/06/19 DC 02/06/19 (NS 10 ml) ONCE .ROUTE 13:02/06/19 13:30 13:25 Sodium 100 ml @ ud STK-MED 02/06/19 DC 02/06/19 Chloride ONCE .ROUTE 13:02/06/19 13:31 13:25 Iohexol 150 ml STK-MED 02/06/19 DC 02/06/19 (Omnipaque ONCE .ROUTE 13:02/06/19 13:31 300mg/ ml) 13:25 Procedures/MDM This patient presented to the emergency department with abdominal pain and was seen and evaluated by myself. My differential diagnosis included but was not limited to abdominal aortic aneurysm, appendicitis, pancreatitis, perforated peptic ulcer, perforated viscus, Boerhaaves syndrome or visceral pain such as diverticulitis, DKA, esophagitis, hepatitis or bowel obstruction. The patient was placed on a restorative care technician, continuous pulse oximetry, and IV access was established by nursing staff. The patient was given intravenous morphine and Zofran for analgesic control I obtained a 12-lead EKG tracing to rule out for atypical microinfarction. 12 Lead EKG tracing ordered and reviewed by myself showed: Normal sinus rhythm of 66 bpm and no arrhythmia. UT interval normal. QRS duration normal. No ST segment elevation No ST segment depression. No changes consistent with acute ischemia. CT scan of the abdomen reviewed by myself the radiologist indicate the followin. Status post cholecystectomy and hysterectomy. 2. Aortoiliac atherosclerotic calcifications. 3. No evidence of bowel obstruction, mass, lymphadenopathy, or acute inflammatory process. The patient had no leukocytosis. The patient had a urinary tract infection which I did feel was exacerbating her symptoms. The patient was treated for pyelonephritis given a prescription of ciprofloxacin given that she has a an allergy to both penicillin and ceftriaxone. The patient was discharged home in fair condition. They were instructed to return to the emergency department at any time if there was any worsening of their condition. The patient stated they would follow up with their PCP in the next 24-48 hours to initiate a suitable medication regimen under the care of their PCP as well as to allow their PCP to monitor any drug reactions. The patient was discharged home with prescriptions after they gave informed consent to the new medication. They were also fully informed by myself on the adverse effects and adverse drug interactions in order to provide adequate safeguards to prevent possible adverse reactions to medications. Departure Diagnosis: Primary Impression: Pyelonephritis Condition: TAYLOR Puentes MD February 06, 2019 12:48
[2019-02-06 16:00] VITALS: BP 127/73; PULSE 65; RESP 16
== END | disposition home or self-care (01) ==
LOC: E/R 11:00
DX: N12 Tubulo-interstitial nephritis, not specified as acute or chronic (principal); I10 Essential (primary) hypertension; E11.9 Type 2 diabetes mellitus without complications; Z79.4 Long term (current) use of insulin
CPT/HCPCS: 74177; 80053; 81001; 82150; 83690; 84484; 85025; 85610; 85730; 87086; 93005; 96374; 96375; 99285; J2270; J2405; J7030; Q9967

== ENCOUNTER 2019-03-28 23:35 | Inpatient (IN) | payer OTHER ==
[~2019-03-28] VITALS: Ht 160 cm; Wt 70.4 kg
[~2019-03-28 23:35] MED LIST changes: -CEPH-443 PO; -IOHEXOL 300MG/ML 150 ML BTL ONE; -MTF1000T PO; -ONDA4TAB13 PO; -ONDA4TAB8 PO; -ONDANSETRON 4 MG INJ IV STA; -PANT40TA4 PO; -SIMV40TA2 PO; -SOD CHLORIDE 0.9% 1,000 ML IV STA; -SOD CHLORIDE 0.9% 100 ML ONE; -TIMO5DRO30 BOTH EYES; -morphine 4 MG/ML VIAL IV STA
[2019-03-28 23:39] VITALS: Ht 160 cm; Wt 70.4 kg
[2019-03-29] VITALS (11 sets, daily range): BP systolic 97–126; BP diastolic 52–60; PULSE 54–71; RESP 20
[2019-03-29] MEDS ORDERED: SOD CHLORIDE 0.9% 1,000 ML IV STA (00:10)
[2019-03-29] MEDS ORDERED: ONDANSETRON 4 MG INJ IV STA (00:10)
[2019-03-29] MEDS ORDERED: ASPIRIN 325 MG TAB PO STA (00:10)
[2019-03-29] MEDS ORDERED: morphine 4 MG/ML VIAL IV STA (00:10)
--- NOTE | 2019-03-29 01:13 | ERD ---
ER Documentation Chief Complaint Chief Complaint CP rad to arm today only. no SOB/n/v. no cardiac hx HPI During the patient's encounter translation services were utilized Language: Tajik Source: In person 63-year-old female presents to the emergency room complaining of chest pain. She describes her chest pain is substernal, left-sided radiating to the shoulder and left upper extremity. No shortness of breath, mild pleuritic component. No recent travel immobilization calf swelling or pain or history of DVT. Patient denies any cardiac history. No fevers chills or cough. ROS All systems reviewed and are negative except as per history of present illness. Medications Home Meds Active Scripts Ibuprofen* (Motrin*) 600 Mg Tab, 600 MG PO Q6H PRN for PAIN AND OR ELEVATED TEMP, #30 TAB Prov:TAYLOR MAGUIRE MD 02/06/19 Ciprofloxacin Hcl* (Ciprofloxacin Hcl*) 500 Mg Tablet, 500 MG PO BID for 10 Days, TAB Prov:TAYLOR MAGUIRE MD 02/06/19 Reported Medications Atorvastatin* (Atorvastatin*) 40 Mg Tablet, 40 MG PO QHS, #30 TAB 02/06/19 Metformin Hcl* (Metformin Hcl*) 1,000 Mg Tablet, 1000 MG PO WITH BREAKFAST DINNE, #60 TAB 02/06/19 Sertraline Hcl* (Sertraline Hcl*) 25 Mg Tablet, 25 MG PO DAILY, #30 TAB 02/06/19 Benazepril Hcl* (Benazepril Hcl*) 5 Mg Tablet, 5 MG PO DAILY, #30 TAB 02/06/19 Amitriptyline Hcl* (Amitriptyline Hcl*) 25 Mg Tablet, 25 MG PO QHS, #30 TAB 02/06/19 Insulin Aspart* (Novolog Insulin Pen*) 100 Unit/Ml Soln, 15 UNIT SC WITH MEALS, EA QAM AND QPM 01/13/19 Latanoprost (Latanoprost) 2.5 Ml Drops, 1 DROP BOTH EYES QHS, #1 BOTTLE 01/13/19 Insulin Glargine,Hum.rec.anlog (Basaglar Kwikpen U-100) 100 Unit/1 Ml Insuln.pen, 40 UNIT SQ QHS 01/13/19 Liraglutide (Victoza 3-Darin) 0.6 Mg/0.1 Ml Pen.injctr, 1.2 MG SQ NOON, SYR 01/13/19 Allergies Allergies: Coded Allergies: Penicillins (Verified Allergy, Unknown, 02/06/19) ceftriaxone (Verified Allergy, Unknown, PRURITIS, 02/06/19) PMhx/Soc History of Surgery: Yes (Gallbladder, Bilateral Eye, Bilateral Wrist, LEFT ANKLE) Anesthesia Reaction: No Hx Neurological Disorder: No Hx Respiratory Disorders: No Hx Cardiac Disorders: Yes (HTN, HLD) Hx Psychiatric Problems: No Hx Miscellaneous Medical Probl: Yes Hx Alcohol Use: No Hx Substance Use: No Hx Tobacco Use: No Smoking Status: Never smoker FmHx Family History: No diabetes, No coronary disease Physical Exam Vitals Vital Signs Date Temp Pulse Resp B/P (MAP) Pulse Ox O2 O2 Flow FiO2 Time Delivery Rate 03/28/19 97.0 64 16 109/59 100 23:39 (76) Physical Exam General: Well developed, well nourished, no acute distress Head: Normocephalic, atraumatic. Eyes: Pupils equally reactive, EOM intact ENT: Moist mucous membranes Neck: Supple, no lymphadenopathy Respiratory: Lungs clear bilaterally, no distress Cardiovascular: RRR, no murmurs, rubs, or gallops Abdominal: Soft, non-tender, non-distended, no peritoneal signs : Deferred MSK: No edema, no unilateral swelling, 5/5 strength Neurologic: Alert and oriented, moving all extremities, normal speech, no focal weakness, no cerebellar signs Skin: No rash Psych: Normal mood Result Diagram: 03/29/19 0017 03/29/19 0016 Results 24 hrs Laboratory Tests Test 03/29/19 00:16 03/29/19 00:17 Prothrombin Time 12.9 Sec Prothrombin Time Ratio 1.0 INR International Normalized Ratio 0.96 Activated Partial Thromboplast Time 27.5 Sec D-Dimer 317.63 ng/ml D-Dimer Comment Sodium Level 142 mmol/L Potassium Level 4.3 mmol/L Chloride Level 103 mmol/L Carbon Dioxide Level 27 mmol/L Anion Gap 12 Blood Urea Nitrogen 13 mg/dl Creatinine 0.51 mg/dl Est Glomerular Filtrat Rate mL/min > 60 mL/min Glucose Level 110 mg/dl Calcium Level 9.9 mg/dl Troponin I < 0.012 ng/ml B-Type Natriuretic Peptide 28 PG/ML White Blood Count 8.5 10^3/ul Red Blood Count 4.32 10^6/ul Hemoglobin 13.0 g/dl Hematocrit 38.8 % Mean Corpuscular Volume 89.8 fl Mean Corpuscular Hemoglobin 30.1 pg Mean Corpuscular Hemoglobin Concent 33.5 g/dl Red Cell Distribution Width 13.5 % Platelet Count 173 10^3/UL Mean Platelet Volume 12.0 fl Immature Granulocytes % 0.200 % Neutrophils % 45.4 % Lymphocytes % 43.2 % Monocytes % 7.4 % Eosinophils % 3.3 % Basophils % 0.5 % Nucleated Red Blood Cells % 0.0 /100WBC Immature Granulocytes # 0.020 10^3/ul Neutrophils # 3.9 10^3/ul Lymphocytes # 3.7 10^3/ul Monocytes # 0.6 10^3/ul Eosinophils # 0.3 10^3/ul Basophils # 0.0 10^3/ul Nucleated Red Blood Cells # 0.0 10^3/ul Current Medications Medications Dose Sig/Shaun Start Time Status Last (Trade) Ordered Route PRN Stop Time Admin Dose Reason Admin Sodium 1,000 ml @ Q1H STAT 03/29/19 DC 03/29/19 Chloride 1,000 mls/hr IV 00:10 01:02 03/29/19 01:09 Aspirin 325 mg ONCE STAT 03/29/19 DC 03/29/19 (Aspirin) PO 00:10 01:04 03/29/19 00:11 Morphine 4 mg ONCE STAT 03/29/19 DC 03/29/19 Sulfate IV 00:10 01:01 (morphine) 03/29/19 00:11 Ondansetron 4 mg ONCE STAT 03/29/19 DC 03/29/19 HCl (Zofran IV 00:10 01:02 Inj) 03/29/19 00:11 Ondansetron 4 mg ER BRIDGE 03/29/19 HCl (Zofran PRN IV 02:00 Inj) NAUSEA/VOMITI 03/30/19 01:59 NG 650 mg ER BRIDGE 03/29/19 Acetaminophen PRN PO 02:00 (Tylenol .MILD PAIN 03/30/19 01:59 Tab) 1-3 OR TEMP Procedures/MDM EKG, MONITORS, & DIAGNOSTIC IMAGING: EKG: I reviewed and interpreted a 12-lead EKG. Rhythm: Sinus bradycardia ST Changes: No contiguous ST segment elevations T waves: No contiguous T wave inversions Impression: No evidence of acute cardiac ischemia Repeat EKG: EKG: I reviewed and interpreted a 12-lead EKG. Rhythm: SB ST Changes: No contiguous ST segment elevations T waves: No contiguous T wave inversions Impression: No evidence of acute cardiac ischemia Chest x-ray: I reviewed and interpreted a 1 view of the chest Mediastinum: No enlargement Cardiac silhouette: No cardiomegaly Airspace: Clear lung hernandez bilaterally without evidence of pneumothorax Bones: No evidence of fracture PROCEDURES: None LAB INTERPRETATION: * Negative troponin and d-dimer MEDICAL DECISION MAKING: The patient's history, physical exam and clinical presentation is concerning for possible cardiogenic etiology and acute coronary syndrome. While the patient has no significant risk factors for PE the patient has pleuritic component. Consider possible PE. Wells low risk criteria. D-dimer appropriate. Based on the patient's clinical exam and history and risk factors, I have a much lower clinical concern for acute aortic dissection, pneumothorax, pneumonia, cardiac tamponade HEART Score: 4 MACE Rate: 16.6% Shared Decision Making: We had a conversation regarding risk stratification, MACE rate, and the risks, benefits, alternatives of disposition planning options. Disposition planning: Admit ER COURSE: * Aspirin morphine provided. IV fluids provided. * Nitroglycerin withheld given borderline blood pressure * Negative work-up in the emergency room. The patient is chest pain-free. CONSULTATION: None DISPOSITION PLAN: Telemetry admission for management of chest pain to rule out acute coronary syndrome, serial enzymes, risk stratification and consideration of provocative testing CONSULTATION: Accepting care team and consultations: I discussed the current laboratory data, diagnostic imaging and emergency care provided. Admitting team: Dr. Coyle Admitting team indication: Insurance directed Departure Diagnosis: Primary Impression: Chest pain Chest pain type: unspecified Qualified Codes: R07.9 - Chest pain, unspecified Condition: Stable KYLE MICHAUD MD Mar 29, 2019 01:13
[2019-03-29] MEDS ORDERED: ACETAMINOPHEN 325 MG TAB PO PRN (02:00)
[2019-03-29] MEDS ORDERED: ONDANSETRON 4 MG INJ IV PRN ×2 (02:00→03:30)
[2019-03-29] MEDS ORDERED: NACL 0.9% 3 ML SYG IV SCH (03:30)
[2019-03-29] MEDS ORDERED: NITROGLYCERIN (SL) 0.4 MG TAB SL PRN (03:30)
[2019-03-29] MEDS ORDERED: ALBUTEROL/IPRATROPIUM (NEB) 3 ML AMP HHN PRN (03:30)
[2019-03-29] MEDS ORDERED: BIMA2.5D (04:15)
[2019-03-29] MEDS ORDERED: TOBR5DRO14 (04:15)
[2019-03-29] MEDS ORDERED: BIMA2.5D BOTH EYES (04:15)
--- NOTE | 2019-03-29 06:34 | HP ---
Date/Time of Note Date/Time of Note DATE: 03/29/19 TIME: 06:31 Assessment/Plan VTE Prophylaxis Pharmacological prophylaxis: heparin Lines/Catheters IV Catheter Type (from Nrsg): Saline Lock Assessment/Plan Assessment/Plan 1. Chest pain: Pain is reproducible on palpation, so most likely musculoskeletal in origin. will however rule out ACS -Telemetry monitoring -Supplemental oxygen, aspirin, beta-consuelo, statin. As needed nitro -2D echo cardiology consult -Serial troponin -EKG without ST-T wave abnormalities 2. Hypertension: Continue home meds. Adjust as needed 3. Insulin-dependent diabetes: Hold metformin. Continue insulin with adjust ment as needed 4. Depression: Continue home meds Result Diagram: 03/29/19 0017 03/29/19 0016 Results 24hrs Laboratory Tests Test 03/29/19 00:16 03/29/19 00:17 Prothrombin Time 12.9 Prothrombin Time Ratio 1.0 INR International Normalized Ratio 0.96 Activated Partial Thromboplast Time 27.5 D-Dimer 317.63 D-Dimer Comment Sodium Level 142 Potassium Level 4.3 Chloride Level 103 Carbon Dioxide Level 27 Anion Gap 12 Blood Urea Nitrogen 13 Creatinine 0.51 Est Glomerular Filtrat Rate mL/min > 60 Glucose Level 110 Calcium Level 9.9 Troponin I < 0.012 B-Type Natriuretic Peptide 28 White Blood Count 8.5 Red Blood Count 4.32 Hemoglobin 13.0 Hematocrit 38.8 Mean Corpuscular Volume 89.8 Mean Corpuscular Hemoglobin 30.1 Mean Corpuscular Hemoglobin Concent 33.5 Red Cell Distribution Width 13.5 Platelet Count 173 Mean Platelet Volume 12.0 H Immature Granulocytes % 0.200 Neutrophils % 45.4 Lymphocytes % 43.2 Monocytes % 7.4 Eosinophils % 3.3 Basophils % 0.5 Nucleated Red Blood Cells % 0.0 Immature Granulocytes # 0.020 Neutrophils # 3.9 Lymphocytes # 3.7 H Monocytes # 0.6 Eosinophils # 0.3 Basophils # 0.0 Nucleated Red Blood Cells # 0.0 HPI/ROS Admit Date/Time Admit Date/Time Mar 29, 2019 at 01:47 Hx of Present Illness Patient is a 63-year-old female with a history of hypertension, insulin- dependent diabetes, dyslipidemia, depression who presents the ER complaining of chest pain pain x1 day. It is mainly left-sided with radiation to the left upper extremity and shoulder. Reported associated shortness of breath. When presented to ER, vitals were stable. First troponin is negative and EKG without ST-T wave abnormalities. Chest x-ray without acute findings. PMH/Family/Social Past Medical History Past Surgical Hx: other (see hpi) Family History Significant Family History: no pertinent family hx Social History Alcohol Use: none Smoking Status: Never smoker Drug Use: none Exam Constitutional: other (no acute distress) Head: normocephalic, atraumatic Eyes: EOMI, PERRL Respiratory: clear to auscultation, normal air movement Cardiovascular: nl pulses Gastrointestinal: soft Extremities: normal pulses Medications Current Medications Ondansetron HCl (Zofran Inj) 4 mg ER BRIDGE PRN IV NAUSEA/VOMITING; Start 03/29/19 at 02:00; Stop 03/30/19 at 01:59 Acetaminophen (Tylenol Tab) 650 mg ER BRIDGE PRN PO .MILD PAIN 1-3 OR TEMP; Start 03/29/19 at 02:00; Stop 03/30/19 at 01:59 IV Flush (NS 3 ml) 3 ml PER PROTOCOL IV ; Start 03/29/19 at 03:30 Ondansetron HCl (Zofran Inj) 4 mg Q6H PRN IV NAUSEA/VOMITING; Start 03/29/19 at 03:30 Aspirin (Aspirin) 81 mg DAILY PO ; Start 03/29/19 at 09:00 Nitroglycerin (Nitroglycerin (Sl Tab) 0.4 Mg) 1 tab Q5M PRN SL .CHEST PAIN; Start 03/29/19 at 03:30 Acetaminophen (Tylenol Tab) 650 mg Q6H PRN PO .PAIN 1-3 OR TEMP; Start 03/29/19 at 03:30 Enoxaparin Sodium (Lovenox) 40 mg DAILY SC ; Start 03/29/19 at 09:00 Albuterol/ Ipratropium (Duoneb) 3 ml Q2H RESP THERAPY PRN HHN SHORTNESS OF BREATH; Start 03/29/19 at 03:30 Diagnostic Test (Pha) (Accu-Chek) 1 XX ; Start 03/30/19 at 02:00 Insulin Glargine (Lantus) 18 units DAILY@0800 SC ; Start 03/29/19 at 08:00 Insulin Aspart (Novolog Insulin Pen) 4 unit WITH MEALS SC ; Start 03/29/19 at 07:55 Insulin Aspart (Novolog Insulin Pen) NOVOLOG *MILD* ALGORITHM WITH MEALS BEDTIME SC ; Start 03/29/19 at 07:55 Amitriptyline HCl (Elavil) 25 mg QHS PO ; Start 03/29/19 at 21:00 Atorvastatin Calcium (Lipitor) 40 mg QHS PO ; Start 03/29/19 at 21:00 Benazepril HCl (Lotensin) 5 mg DAILY PO ; Start 03/29/19 at 09:00 Latanoprost (Xalatan) 1 drop QHS BOTH EYES ; Start 03/29/19 at 21:00 Sertraline HCl (Zoloft) 25 mg DAILY PO ; Start 03/29/19 at 09:00 Coded Allergies: Penicillins (Unverified Allergy, Unknown, 03/29/19) ceftriaxone (Unverified Allergy, Unknown, PRURITIS, 03/29/19) Social History Smoking Status: Never smoker Exam/Review of Systems Vital Signs Vitals Vital Signs Date Temp Pulse Resp B/P (MAP) Pulse Ox O2 O2 Flow FiO2 Time Delivery Rate 03/29/19 61 04:27 03/29/19 97.4 20 108/59 100 Room Air 04:25 (75) Exam Musculoskeletal: other (Chest pain elicited on palpation of chest) HERBIE LOZANO MD Mar 29, 2019 06:34
[2019-03-29] MEDS ORDERED: BENAZEPRIL 5 MG TAB PO SCH (09:00)
[2019-03-29] MEDS: SERTRALINE 50 MG TAB PO SCH (09:11)
[2019-03-29] MEDS: ASPIRIN 81 MG TAB PO SCH (09:11)
[2019-03-29] MEDS: INSULIN ASPART [NOVOLOG] 3 ML PEN SC SCH ×7 (09:32→21:00)
[2019-03-29] MEDS: ENOXAPARIN 40 MG/0.4 ML SYG SC SCH (09:32)
[2019-03-29] MEDS: INSULIN GLARGINE [LANTus] (100 UNITS/ML) SYG SC SCH (09:32)
[2019-03-29] MEDS: ACETAMINOPHEN 325 MG TAB PO PRN (11:47)
--- NOTE | 2019-03-29 17:49 | PN ---
Date/Time of Note Date/Time of Note DATE: 03/29/19 TIME: 17:47 Assessment/Plan VTE [place]axis [place] [facility] [place]: 3 [place] [facility] [place] SCD contraindicated: low risk/ambulating Pharmacological prophylaxis: NA/contraindicated, LMWH Pharm contraindication: low risk/ambulating Lines/Catheters IV [facility] Saline Lock Assessment/Plan Hospital Course A/P 1. CP; no ACS; MSK? Rx w nsaids 2. DM 3. Htn 4. DL 5. Blurry vision; low bp related? 6. Metabolic syndr; start asa 7. sp cataract sx S: no further cp. no focal deficits. blurry vision once O: vss sr PE no pallor/jvd/ droop reg s1s2 no mrg ctab: Tender+ bs+ nt nd no rrg no edema non focal Result Diagram: 03/29/19 0555 03/29/19 0555 Results 24hrs Laboratory Tests Test 03/29/19 00:16 03/29/19 00:17 03/29/19 05:55 03/29/19 09:05 Prothrombin Time 12.9 Prothrombin Time 1.0 Ratio INR International 0.96 Normalized Ratio Activated 27.5 Partial Thromboplast Time D-Dimer 317.63 D-Dimer Comment Sodium Level 142 146 H Potassium Level 4.3 4.6 Chloride Level 103 106 Carbon Dioxide Level 27 29 Anion Gap 12 11 Blood Urea Nitrogen 13 11 Creatinine 0.51 0.54 Est Glomerular > 60 > 60 Filtrat Rate mL/min Glucose Level 110 107 Calcium Level 9.9 9.2 Troponin I < 0.012 < 0.012 B-Type Natriuretic 28 Peptide White Blood Count 8.5 9.0 Red Blood Count 4.32 4.18 L Hemoglobin 13.0 12.7 Hematocrit 38.8 38.3 Mean Corpuscular 89.8 91.6 Volume Mean Corpuscular 30.1 30.4 Hemoglobin Mean Corpuscular 33.5 33.2 Hemoglobin Concent Red Cell 13.5 13.8 Distribution Width Platelet Count 173 144 Mean Platelet Volume 12.0 H 11.9 H Immature 0.200 0.400 Granulocytes % Neutrophils % 45.4 63.9 Lymphocytes % 43.2 26.6 Monocytes % 7.4 6.9 Eosinophils % 3.3 2.0 Basophils % 0.5 0.2 Nucleated Red Blood 0.0 0.0 Cells % Immature 0.020 0.040 H Granulocytes # Neutrophils # 3.9 5.7 Lymphocytes # 3.7 H 2.4 Monocytes # 0.6 0.6 Eosinophils # 0.3 0.2 Basophils # 0.0 0.0 Nucleated Red Blood 0.0 0.0 Cells # Hemoglobin A1c 6.3 H Magnesium Level 1.9 Total Bilirubin 0.5 Direct Bilirubin 0.00 Indirect Bilirubin 0.5 Aspartate Amino 212 H Transf (AST/SGOT) Alanine 108 H Aminotransferase (AL T/SGPT) Alkaline Phosphatase 106 Creatine Kinase 45 Creatine Kinase 0.6 Index Creatinine Kinase MB 0.29 (Mass) Total Protein 6.4 Albumin 3.7 Globulin 2.70 Albumin/Globulin 1.37 Ratio Triglycerides Level 138 Cholesterol Level 109 LDL Cholesterol, 52 Calculated HDL Cholesterol 29 L Cholesterol/HDL 3.7 Ratio Thyroid Stimulating 2.430 Hormone (TSH) Bedside Glucose 208 Test 03/29/19 11:40 03/29/19 12:00 03/29/19 17:14 Bedside Glucose 102 137 Creatine Kinase 42 Creatine Kinase 0.5 Index Creatinine Kinase MB < 0.22 (Mass) Troponin I < 0.012 Exam/Review of Systems Exam Vitals Vital Signs Date Temp Pulse Resp B/P (MAP) Pulse Ox O2 O2 Flow FiO2 Time Delivery Rate 03/29/19 98.3 56 20 102/57 96 15:29 (72) 03/29/19 Room Air 04:25 Results Results 24hrs Laboratory Tests Test 03/29/19 00:16 03/29/19 00:17 03/29/19 05:55 03/29/19 09:05 Prothrombin Time 12.9 Prothrombin Time 1.0 Ratio INR International 0.96 Normalized Ratio Activated 27.5 Partial Thromboplast Time D-Dimer 317.63 D-Dimer Comment Sodium Level 142 146 H Potassium Level 4.3 4.6 Chloride Level 103 106 Carbon Dioxide Level 27 29 Anion Gap 12 11 Blood Urea Nitrogen 13 11 Creatinine 0.51 0.54 Est Glomerular > 60 > 60 Filtrat Rate mL/min Glucose Level 110 107 Calcium Level 9.9 9.2 Troponin I < 0.012 < 0.012 B-Type Natriuretic 28 Peptide White Blood Count 8.5 9.0 Red Blood Count 4.32 4.18 L Hemoglobin 13.0 12.7 Hematocrit 38.8 38.3 Mean Corpuscular 89.8 91.6 Volume Mean Corpuscular 30.1 30.4 Hemoglobin Mean Corpuscular 33.5 33.2 Hemoglobin Concent Red Cell 13.5 13.8 Distribution Width Platelet Count 173 144 Mean Platelet Volume 12.0 H 11.9 H Immature 0.200 0.400 Granulocytes % Neutrophils % 45.4 63.9 Lymphocytes % 43.2 26.6 Monocytes % 7.4 6.9 Eosinophils % 3.3 2.0 Basophils % 0.5 0.2 Nucleated Red Blood 0.0 0.0 Cells % Immature 0.020 0.040 H Granulocytes # Neutrophils # 3.9 5.7 Lymphocytes # 3.7 H 2.4 Monocytes # 0.6 0.6 Eosinophils # 0.3 0.2 Basophils # 0.0 0.0 Nucleated Red Blood 0.0 0.0 Cells # Hemoglobin A1c 6.3 H Magnesium Level 1.9 Total Bilirubin 0.5 Direct Bilirubin 0.00 Indirect Bilirubin 0.5 Aspartate Amino 212 H Transf (AST/SGOT) Alanine 108 H Aminotransferase (AL T/SGPT) Alkaline Phosphatase 106 Creatine Kinase 45 Creatine Kinase 0.6 Index Creatinine Kinase MB 0.29 (Mass) Total Protein 6.4 Albumin 3.7 Globulin 2.70 Albumin/Globulin 1.37 Ratio Triglycerides Level 138 Cholesterol Level 109 LDL Cholesterol, 52 Calculated HDL Cholesterol 29 L Cholesterol/HDL 3.7 Ratio Thyroid Stimulating 2.430 Hormone (TSH) Bedside Glucose 208 Test 03/29/19 11:40 03/29/19 12:00 03/29/19 17:14 Bedside Glucose 102 137 Creatine Kinase 42 Creatine Kinase 0.5 Index Creatinine Kinase MB < 0.22 (Mass) Troponin I < 0.012 Medications Medication Current Medications Ondansetron HCl (Zofran Inj) 4 mg ER BRIDGE PRN IV NAUSEA/VOMITING; Start 03/29/19 at 02:00; Stop 03/30/19 at 01:59 Acetaminophen (Tylenol Tab) 650 mg ER BRIDGE PRN PO .MILD PAIN 1-3 OR TEMP; Start 03/29/19 at 02:00; Stop 03/30/19 at 01:59 IV Flush (NS 3 ml) 3 ml PER PROTOCOL IV ; Start 03/29/19 at 03:30 Ondansetron HCl (Zofran Inj) 4 mg Q6H PRN IV NAUSEA/VOMITING; Start 03/29/19 at 03:30 Aspirin (Aspirin) 81 mg DAILY PO Last administered on 03/29/19 09:11; Admin Dose 81 MG; Start 03/29/19 at 09:00 Nitroglycerin (Nitroglycerin (Sl Tab) 0.4 Mg) 1 tab Q5M PRN SL .CHEST PAIN; Start 03/29/19 at 03:30 Acetaminophen (Tylenol Tab) 650 mg Q6H PRN PO .PAIN 1-3 OR TEMP Last administered on 03/29/19 11:47; Admin Dose 650 MG; Start 03/29/19 at 03:30 Enoxaparin Sodium (Lovenox) 40 mg DAILY SC Last administered on 03/29/19 09:32; Admin Dose 40 MG; Start 03/29/19 at 09:00 Albuterol/ Ipratropium (Duoneb) 3 ml Q2H RESP THERAPY PRN HHN SHORTNESS OF BREATH; Start 03/29/19 at 03:30 Diagnostic Test (Pha) (Accu-Chek) 1 ea 02 XX ; Start 03/30/19 at 02:00 Insulin Glargine (Lantus) 18 units DAILY@0800 SC Last administered on 03/29/19 09:32; Admin Dose 18 UNITS; Start 03/29/19 at 08:00 Insulin Aspart (Novolog Insulin Pen) 4 unit WITH MEALS SC Last administered on 03/29/19 12:35; Admin Dose 4 UNIT; Start 03/29/19 at 07:55 Insulin Aspart (Novolog Insulin Pen) NOVOLOG *MILD* ALGORITHM WITH MEALS BEDTIME SC Last administered on 03/29/19 09:32; Admin Dose 2 UNIT; Start 03/29/19 at 07:55 Amitriptyline HCl (Elavil) 25 mg QHS PO ; Start 03/29/19 at 21:00 Atorvastatin Calcium (Lipitor) 40 mg QHS PO ; Start 03/29/19 at 21:00 Benazepril HCl (Lotensin) 5 mg DAILY PO ; Start 03/29/19 at 09:00 Latanoprost (Xalatan) 1 drop QHS BOTH EYES ; Start 03/29/19 at 21:00 Sertraline HCl (Zoloft) 25 mg DAILY PO Last administered on 6/22/19at 09:11; Admin Dose 25 MG; Start 03/29/19 at 09:00 SHARON OBANDO MD Mar 29, 2019 17:49
[2019-03-29] MEDS ORDERED: IBUPROFEN 600 MG TAB PO PRN (18:00)
[2019-03-29] MEDS: ATORVASTATIN 40 MG TAB PO SCH (21:52)
[2019-03-29] MEDS: LATANOPROST 0.005% 2.5 ML OPH BOTH EYES SCH (21:52)
[2019-03-29] MEDS: AMITRIPTYLINE 25 MG TAB PO SCH (21:52)
[2019-03-29] MEDS: ACCU-CHEK XX SCH (21:57)
[2019-03-30] VITALS (15 sets, daily range): BP systolic 98–118; BP diastolic 53–64; PULSE 52–70; RESP 18–20
[2019-03-30] MEDS: INSULIN ASPART [NOVOLOG] 3 ML PEN SC SCH ×7 (07:53→22:19)
[2019-03-30] MEDS: INSULIN GLARGINE [LANTus] (100 UNITS/ML) SYG SC SCH (07:54)
[2019-03-30] MEDS: BENAZEPRIL 5 MG TAB PO SCH (08:40)
[2019-03-30] MEDS: SERTRALINE 50 MG TAB PO SCH (08:41)
[2019-03-30] MEDS: ASPIRIN 81 MG TAB PO SCH (08:41)
[2019-03-30] MEDS: ENOXAPARIN 40 MG/0.4 ML SYG SC SCH (08:53)
[2019-03-30] MEDS: ACETAMINOPHEN 325 MG TAB PO PRN (11:34)
--- NOTE | 2019-03-30 11:47 | PDOCDIS ---
Discharge Instructions CONDITION [id number] Patient Condition: [id number] Stable HOME CARE INSTRUCTIONS: [id number] Diet Instructions: [id number] Low Fat /Cholesterol ACTIVITY: [id number] Activity Restrictions: [id number] Slowly Increase Activity Do not Drive [id number] Activity Restrictions Comment: [id number] no driving for 1 week FOLLOW UP/APPOINTMENTS Follow-up Plan appt primary 1wk SHARON OBANDO MD Mar 30, 2019 11:47
[2019-03-30] MEDS ORDERED: ASPI-831 PO (11:50)
[2019-03-30] MEDS ORDERED: ACET325T33 PO (11:50)
[2019-03-30] MEDS ORDERED: BENA5TAB33 PO (11:50)
[2019-03-30] MEDS ORDERED: SOD CHLORIDE 0.9% 500 ML IV ONE (12:00)
--- NOTE | 2019-03-30 14:03 | PN ---
Date/Time of Note Date/Time of Note DATE: 03/30/19 TIME: 14:01 Assessment/Plan VTE Prophylaxis Risk score (from Ns)>0 risk: 3 SCD applied (from Ns): Yes SCD contraindicated: low risk/ambulating Pharmacological prophylaxis: LMWH Lines/Catheters IV Catheter Type (from Nrs): Saline Lock Assessment/Plan Hospital Course A/P 1. CP; no ACS; MSK? Rx w nsaids. Recurrent pain/dyspnea. Will go for stress test 2. DM 3. Htn 4. DL 5. Blurry vision; low bp related? 6. Metabolic syndr; started asa 7. sp cataract sx S: no further cp. no focal deficits. blurry vision once 03/30 recurrent dyspnea nonexertional. No diaphoresis vomiting. Orthostatics borderline yesterday. drinks 3-4 bottles of water/ day. Denies any hematuria dysuria O: vss sr PE no pallor/jvd/droop reg s1s2 no mrg ctab: Tender+ bs+ nt nd no rrg no edema non focal Result Diagram: 03/30/19 0549 03/30/19 0549 Results 24hrs Laboratory Tests Test 03/29/19 17:14 03/29/19 21:56 03/30/19 05:49 03/30/19 07:47 Bedside Glucose 137 147 141 White Blood Count 7.3 Red Blood Count 4.30 Hemoglobin 13.0 Hematocrit 38.9 Mean Corpuscular 90.5 Volume Mean Corpuscular 30.2 Hemoglobin Mean Corpuscular 33.4 Hemoglobin Concent Red Cell 13.8 Distribution Width Platelet Count 134 L Mean Platelet Volume 12.2 H Immature 0.300 Granulocytes % Neutrophils % 53.4 Lymphocytes % 35.8 Monocytes % 7.4 Eosinophils % 2.7 Basophils % 0.4 Nucleated Red Blood 0.0 Cells % Immature 0.020 Granulocytes # Neutrophils # 3.9 Lymphocytes # 2.6 Monocytes # 0.5 Eosinophils # 0.2 Basophils # 0.0 Nucleated Red Blood 0.0 Cells # Sodium Level 144 Potassium Level 3.9 Chloride Level 104 Carbon Dioxide Level 30 Anion Gap 10 Blood Urea Nitrogen 11 Creatinine 0.53 Est Glomerular > 60 Filtrat Rate mL/min Glucose Level 123 Calcium Level 8.8 Phosphorus Level 3.8 Magnesium Level 2.1 Total Bilirubin 0.6 Direct Bilirubin 0.00 Indirect Bilirubin 0.6 Aspartate Amino 67 H Transf (AST/SGOT) Alanine 81 H Aminotransferase (AL T/SGPT) Alkaline Phosphatase 102 Total Protein 6.4 Albumin 3.8 Globulin 2.60 Albumin/Globulin 1.46 Ratio Lipase 216 Exam/Review of Systems Exam Vitals Vital Signs Date Temp Pulse Resp B/P (MAP) Pulse Ox O2 O2 Flow FiO2 Time Delivery Rate 03/30/19 59 12:00 03/30/19 98.7 20 117/59 98 11:25 (78) 03/30/19 Room Air 04:04 Intake and Output 03/29/19 03/29/19 03/30/19 1515:00 23:00 07:00 IntakeIntake Total 1150 ml 600 ml BalanceBalance 1150 ml 600 ml Results Results 24hrs Laboratory Tests Test 03/29/19 17:14 03/29/19 21:56 03/30/19 05:49 03/30/19 07:47 Bedside Glucose 137 147 141 White Blood Count 7.3 Red Blood Count 4.30 Hemoglobin 13.0 Hematocrit 38.9 Mean Corpuscular 90.5 Volume Mean Corpuscular 30.2 Hemoglobin Mean Corpuscular 33.4 Hemoglobin Concent Red Cell 13.8 Distribution Width Platelet Count 134 L Mean Platelet Volume 12.2 H Immature 0.300 Granulocytes % Neutrophils % 53.4 Lymphocytes % 35.8 Monocytes % 7.4 Eosinophils % 2.7 Basophils % 0.4 Nucleated Red Blood 0.0 Cells % Immature 0.020 Granulocytes # Neutrophils # 3.9 Lymphocytes # 2.6 Monocytes # 0.5 Eosinophils # 0.2 Basophils # 0.0 Nucleated Red Blood 0.0 Cells # Sodium Level 144 Potassium Level 3.9 Chloride Level 104 Carbon Dioxide Level 30 Anion Gap 10 Blood Urea Nitrogen 11 Creatinine 0.53 Est Glomerular > 60 Filtrat Rate mL/min Glucose Level 123 Calcium Level 8.8 Phosphorus Level 3.8 Magnesium Level 2.1 Total Bilirubin 0.6 Direct Bilirubin 0.00 Indirect Bilirubin 0.6 Aspartate Amino 67 H Transf (AST/SGOT) Alanine 81 H Aminotransferase (AL T/SGPT) Alkaline Phosphatase 102 Total Protein 6.4 Albumin 3.8 Globulin 2.60 Albumin/Globulin 1.46 Ratio Lipase 216 Medications Medication Current Medications IV Flush (NS 3 ml) 3 ml PER PROTOCOL IV ; Start 03/29/19 at 03:30 Ondansetron HCl (Zofran Inj) 4 mg Q6H PRN IV NAUSEA/VOMITING; Start 03/29/19 at 03:30 Aspirin (Aspirin) 81 mg DAILY PO Last administered on 03/30/19 08:41; Admin Dose 81 MG; Start 03/29/19 at 09:00 Nitroglycerin (Nitroglycerin (Sl Tab) 0.4 Mg) 1 tab Q5M PRN SL .CHEST PAIN; Start 03/29/19 at 03:30 Acetaminophen (Tylenol Tab) 650 mg Q6H PRN PO .PAIN 1-3 OR TEMP Last administered on 03/30/19 11:34; Admin Dose 650 MG; Start 03/29/19 at 03:30 Enoxaparin Sodium (Lovenox) 40 mg DAILY SC Last administered on 03/30/19 08:53; Admin Dose 40 MG; Start 03/29/19 at 09:00 Albuterol/ Ipratropium (Duoneb) 3 ml Q2H RESP THERAPY PRN HHN SHORTNESS OF BREATH; Start 03/29/19 at 03:30 Diagnostic Test (Pha) (Accu-Chek) 1 ea 02 XX ; Start 03/30/19 at 02:00 Insulin Glargine (Lantus) 18 units DAILY@0800 SC Last administered on 03/30/19 07:54; Admin Dose 18 UNITS; Start 03/29/19 at 08:00 Insulin Aspart (Novolog Insulin Pen) 4 unit WITH MEALS SC Last administered on 03/30/19 12:37; Admin Dose 4 UNIT; Start 03/29/19 at 07:55 Insulin Aspart (Novolog Insulin Pen) NOVOLOG *MILD* ALGORITHM WITH MEALS BEDTIME SC Last administered on 03/30/19 12:37; Admin Dose 2 UNIT; Start 03/29/19 at 07:55 Amitriptyline HCl (Elavil) 25 mg QHS PO Last administered on 03/29/19 21:52; Admin Dose 25 MG; Start 03/29/19 at 21:00 Atorvastatin Calcium (Lipitor) 40 mg QHS PO Last administered on 03/29/19 21: 52; Admin Dose 40 MG; Start 03/29/19 at 21:00 Latanoprost (Xalatan) 1 drop QHS BOTH EYES Last administered on 6/22/19at 21:52; Admin Dose 1 DROP; Start 03/29/19 at 21:00 Sertraline HCl (Zoloft) 25 mg DAILY PO Last administered on 03/30/19at 08:41; Admin Dose 25 MG; Start 03/29/19 at 09:00 Benazepril HCl (Lotensin) 2.5 mg DAILY PO Last administered on 03/30/19at 08:40; Admin Dose 2.5 MG; Start 03/30/19 at 09:00 Ibuprofen (Motrin) 600 mg Q6H PRN PO MILD PAIN LEVEL 1-3; Start 03/29/19 at 18:00 SHARON OBANDO MD Mar 30, 2019 14:03
[2019-03-30] MEDS: ATORVASTATIN 40 MG TAB PO SCH (21:49)
[2019-03-30] MEDS: LATANOPROST 0.005% 2.5 ML OPH BOTH EYES SCH (21:49)
[2019-03-30] MEDS: AMITRIPTYLINE 25 MG TAB PO SCH (21:49)
[2019-03-31] VITALS (12 sets, daily range): BP systolic 104–114; BP diastolic 57–77; PULSE 51–64; RESP 18–20
[2019-03-31] MEDS: ACCU-CHEK XX SCH (02:50)
[2019-03-31] MEDS: INSULIN ASPART [NOVOLOG] 3 ML PEN SC SCH ×7 (07:55→22:28)
[2019-03-31] MEDS: ASPIRIN 81 MG TAB PO SCH (08:08)
[2019-03-31] MEDS: SERTRALINE 50 MG TAB PO SCH (08:09)
[2019-03-31] MEDS: BENAZEPRIL 5 MG TAB PO SCH (08:09)
[2019-03-31] MEDS: INSULIN GLARGINE [LANTus] (100 UNITS/ML) SYG SC SCH (08:20)
[2019-03-31] MEDS: ENOXAPARIN 40 MG/0.4 ML SYG SC SCH (08:20)
[2019-03-31] MEDS ORDERED: REGADENOSON 0.4 MG/5 ML SYG ONE (11:27)
--- NOTE | 2019-03-31 14:24 | CARRPT ---
DATE OF PROCEDURE: 03/31/2019 TYPE OF PROCEDURE: Lexiscan Cardiolite stress test, electrocardiogram portion. REASON FOR STRESS TESTING: Chest pain, assess for ischemia. BASELINE VITAL SIGNS AND ELECTROCARDIOGRAM: Pulse 52, blood pressure 109/56. Electrocardiogram reve als sinus bradycardia, rate 52, normal axis, normal intervals, T-wave inversion isolated to lead 3. PROCEDURE IN DETAILS: The patient underwent standard Lexiscan infusion protocol for 10 seconds follo wed by the radiolabeled tracer. The patient's test was stopped due to completion of protocol. Maxim al achieved blood pressure during the test of 121/57. Maximum heart rate during the test was 88. ELECTROCARDIOGRAM FINDINGS: The patient did not develop any new Lexiscan-induced ST or T-wave change s from baseline abnormalities, no documented PVCs. SYMPTOMS: The patient had no complaints of chest pain, shortness of breath. IMPRESSION: 1. No Lexiscan-induced ST or T-wave changes from baseline abnormalities diagnostic of cardiac ischem ia. 2. No complaints of chest pain or shortness of breath during stress testing. 3. No documented premature ventricular contractions during stress testing. 4. Report of nuclear images to follow in separate dictation. Dictated By: CARLEEN BURDICK/NTS Conf#: [id number] DID#: [id number] CC: SHARON OBANDO MD; HERBIE LOZANO MD;*End*
[2019-03-31] MEDS: ACETAMINOPHEN 325 MG TAB PO PRN (17:15)
[2019-03-31] MEDS ORDERED: BARIUM SULF 2% 450 ML BTL (BERRY SMOOTHIE) PO ONE (17:30)
--- NOTE | 2019-03-31 18:43 | PN ---
Date/Time of Note Date/Time of Note DATE: 03/31/19 TIME: 18:41 Assessment/Plan VTE Prophylaxis Risk score (from Ns)>0 risk: 3 SCD applied (from Ns): Yes SCD contraindicated: low risk/ambulating Pharmacological prophylaxis: NA/contraindicated Pharm contraindication: low risk/ambulating Lines/Catheters IV [facility]from [facility] Saline Lock Assessment/Plan Hospital Course A/P 1. CP; no ACS; MSK? Rx w nsaids. Recurrent pain/dyspnea. Stress test -ve. dc home 2. DM 3. Htn 4. DL 5. Blurry vision; low bp related? 6. Metabolic syndr; started asa 7. sp cataract sx 8. Abn lfts; gb removed. no fever. usg concerning, therefore ct ordered. if ct ok, may dc home, S: no further cp. no focal deficits. blurry vision once 03/30 recurrent dyspnea nonexertional. No diaphoresis vomiting. Orthostatics borderline yesterday. drinks 3-4 bottles of water/ day. Denies any hematuria dysuria 03/31: No events. I updated patient and daughter regarding the disposition home after CT abdomen results are back, and if normal. O: vss sr PE no pallor reg s1s2 no mrg ctab: Tender+ bs+ nt nd no rrg no edema non focal Result Diagram: 03/31/1953603/31/19 0537 Results 24hrs Laboratory Tests Test 03/30/19 21:52 03/31/19 02:49 03/31/19 05:37 03/31/19 08:07 Bedside Glucose 224 H 134 145 White Blood Count 6.4 Red Blood Count 4.36 Hemoglobin 13.0 Hematocrit 39.6 Mean Corpuscular 90.8 Volume Mean Corpuscular 29.8 Hemoglobin Mean Corpuscular 32.8 Hemoglobin Concent Red Cell 13.7 Distribution Width Platelet Count 124 L Mean Platelet Volume 11.9 H Immature 0.300 Granulocytes % Neutrophils % 44.7 Lymphocytes % 44.1 Monocytes % 7.0 Eosinophils % 3.4 Basophils % 0.5 Nucleated Red Blood 0.0 Cells % Immature 0.020 Granulocytes # Neutrophils # 2.9 Lymphocytes # 2.8 Monocytes # 0.5 Eosinophils # 0.2 Basophils # 0.0 Nucleated Red Blood 0.0 Cells # Sodium Level 144 Potassium Level 4.1 Chloride Level 103 Carbon Dioxide Level 30 Anion Gap 11 Blood Urea Nitrogen 11 Creatinine 0.57 Est Glomerular > 60 Filtrat Rate mL/min Glucose Level 136 Calcium Level 9.0 Total Bilirubin 0.6 Direct Bilirubin 0.00 Indirect Bilirubin 0.6 Aspartate Amino 52 H Transf (AST/SGOT) Alanine 66 Aminotransferase (AL T/SGPT) Alkaline Phosphatase 108 Total Protein 6.7 Albumin 3.9 Globulin 2.80 Albumin/Globulin 1.39 Ratio Lipase 231 Test 03/31/19 13:47 03/31/19 17:08 Bedside Glucose 126 292 H Exam/Review of Systems Exam Vitals Vital Signs Date Temp Pulse Resp B/P (MAP) Pulse Ox O2 O2 Flow FiO2 Time Delivery Rate 03/31/19 98.7 64 20 104/59 96 15:31 (74) 03/31/19 Room Air 03:42 Intake and Output 03/30/19 03/30/19 03/31/19 1515:00 23:00 07:00 IntakeIntake Total 650 ml 960 ml BalanceBalance 650 ml 960 ml Results Results 24hrs Laboratory Tests Test 03/30/19 21:52 03/31/19 02:49 03/31/19 05:37 03/31/19 08:07 Bedside Glucose 224 H 134 145 White Blood Count 6.4 Red Blood Count 4.36 Hemoglobin 13.0 Hematocrit 39.6 Mean Corpuscular 90.8 Volume Mean Corpuscular 29.8 Hemoglobin Mean Corpuscular 32.8 Hemoglobin Concent Red Cell 13.7 Distribution Width Platelet Count 124 L Mean Platelet Volume 11.9 H Immature 0.300 Granulocytes % Neutrophils % 44.7 Lymphocytes % 44.1 Monocytes % 7.0 Eosinophils % 3.4 Basophils % 0.5 Nucleated Red Blood 0.0 Cells % Immature 0.020 Granulocytes # Neutrophils # 2.9 Lymphocytes # 2.8 Monocytes # 0.5 Eosinophils # 0.2 Basophils # 0.0 Nucleated Red Blood 0.0 Cells # Sodium Level 144 Potassium Level 4.1 Chloride Level 103 Carbon Dioxide Level 30 Anion Gap 11 Blood Urea Nitrogen 11 Creatinine 0.57 Est Glomerular > 60 Filtrat Rate mL/min Glucose Level 136 Calcium Level 9.0 Total Bilirubin 0.6 Direct Bilirubin 0.00 Indirect Bilirubin 0.6 Aspartate Amino 52 H Transf (AST/SGOT) Alanine 66 Aminotransferase (AL T/SGPT) Alkaline Phosphatase 108 Total Protein 6.7 Albumin 3.9 Globulin 2.80 Albumin/Globulin 1.39 Ratio Lipase 231 Test 03/31/19 13:47 03/31/19 17:08 Bedside Glucose 126 292 H Medications Medication Current Medications IV Flush (NS 3 ml) 3 ml PER PROTOCOL IV ; Start 03/29/19 at 03:30 Ondansetron HCl (Zofran Inj) 4 mg Q6H PRN IV NAUSEA/VOMITING; Start 03/29/19 at 03:30 Aspirin (Aspirin) 81 mg DAILY PO Last administered on 03/31/19at 08:08; Admin Dose 81 MG; Start 03/29/19 at 09:00 Nitroglycerin (Nitroglycerin (Sl Tab) 0.4 Mg) 1 tab Q5M PRN SL .CHEST PAIN; Start 03/29/19 at 03:30 Acetaminophen (Tylenol Tab) 650 mg Q6H PRN PO .PAIN 1-3 OR TEMP Last administered on 03/31/19at 17:15; Admin Dose 650 MG; Start 03/29/19 at 03:30 Enoxaparin Sodium (Lovenox) 40 mg DAILY SC Last administered on 03/31/19 08:20; Admin Dose 40 MG; Start 03/29/19 at 09:00 Albuterol/ Ipratropium (Duoneb) 3 ml Q2H RESP THERAPY PRN HHN SHORTNESS OF BREATH; Start 03/29/19 at 03:30 Diagnostic Test (Pha) (Accu-Chek) 1 ea 02 XX Last administered on 03/31/19at 02:50; Admin Dose 1 EA; Start 03/30/19 at 02:00 Insulin Aspart (Novolog Insulin Pen) NOVOLOG *MILD* ALGORITHM WITH MEALS BEDTIM E SC Last administered on 03/31/19 17:21; Admin Dose 4 UNIT; Start 03/29/19 at 07:55 Amitriptyline HCl (Elavil) 25 mg QHS PO Last administered on 03/30/19 21:49; Admin Dose 25 MG; Start 03/29/19 at 21:00 Atorvastatin Calcium (Lipitor) 40 mg QHS PO Last administered on 03/30/19 21:49; Admin Dose 40 MG; Start 03/29/19 at 21:00 Latanoprost (Xalatan) 1 drop QHS BOTH EYES Last administered on 03/30/19at 21:49; Admin Dose 1 DROP; Start 03/29/19 at 21:00 Sertraline HCl (Zoloft) 25 mg DAILY PO Last administered on 03/31/19 08:09; Admin Dose 25 MG; Start 03/29/19 at 09:00 Benazepril HCl (Lotensin) 2.5 mg DAILY PO Last administered on 03/31/19 08:09; Admin Dose 2.5 MG; Start 03/30/19 at 09:00 Ibuprofen (Motrin) 600 mg Q6H PRN PO MILD PAIN LEVEL 1-3; Start 03/29/19 at 18:00 Insulin Aspart (Novolog Insulin Pen) 2 unit WITH MEALS SC Last administered on 03/31/19 17:21; Admin Dose 2 UNIT; Start 03/30/19 at 17:55 Insulin Glargine (Lantus) 9 units DAILY@0800 SC Last administered on 03/31/19 08:20; Admin Dose 9 UNITS; Start 03/31/19 at 08:00 SHARON OBANDO MD Mar 31, 2019 18:43
[2019-03-31] MEDS: LATANOPROST 0.005% 2.5 ML OPH BOTH EYES SCH (22:23)
[2019-03-31] MEDS: ATORVASTATIN 40 MG TAB PO SCH (22:23)
[2019-03-31] MEDS: AMITRIPTYLINE 25 MG TAB PO SCH (22:23)
[2019-04-01] VITALS (11 sets, daily range): BP systolic 106–118; BP diastolic 55–67; PULSE 50–62; RESP 17–20
[2019-04-01] MEDS: ACCU-CHEK XX SCH (02:35)
--- NOTE | 2019-04-01 07:05 | CONS ---
DATE OF ADMISSION: 03/30/2019 DATE OF CONSULTATION: 03/31/2019 REASON FOR CONSULTATION: Chest pain, assess for acute coronary syndrome. REQUESTING PHYSICIAN: Dr. Tripp Obando from the hospitalist service. HISTORY OF PRESENT ILLNESS: Ms. Resendiz is a 63-year-old female with hypertension, diabetes mellitus, depression. She initially presented with complaints of substernal chest pain. The patient points t o describe the chest pain as being left-sided, both exertion and with rest. Initially upon arrival, temperature of 97, blood pressure 109/59, pulse 64, respirations 16, satting 100%. The patient's lab s were notable for a white count 8.5, hemoglobin 30.0, platelet count was 73, a sodium of 142, potass ium 4.3, creatinine 0.5, BUN 13. Troponin negative. TSH of 2.4. INR 0.9. The patient underwent a chest x-ray revealing no acute cardiopulmonary disease and a KUB revealing status post cholecystectom y. No intrahepatic biliary duct dilatation, new duct dilatation of the pancreatic duct is noted, whi ch is only partially visualized. The patient's electrocardiogram had revealed sinus bradycardia at 5 7 with a borderline right axis deviation, ST-T flattening in lead III. PAST MEDICAL HISTORY: As above in HPI. MEDICATIONS CURRENTLY IN HOSPITAL: 1. Lantus 9 units subcutaneous at bedtime. 2. Benazepril 2.5 mg daily. 3. Elavil 25 mg at bedtime. 4. Lipitor 40 mg at bedtime. 5. Xalatan eyedrops 6. Motrin p.r.n. 7. Aspirin 81 mg daily. 8. Lovenox ____ daily. 9. Zoloft 25 mg. 10. Insulin sliding scale. 11. Zofran p.r.n. 12. . 13. Tylenol p.r.n. 14. DuoNeb. ALLERGIES 1. PENICILLIN. 2. CEFTRIAXONE. SOCIAL HISTORY: No current tobacco, EtOH or illicit drug use. FAMILY HISTORY: No history of sudden cardiac or early CAD. REVIEW OF SYSTEMS: As above in HPI. CONSTITUTIONAL: No fevers, chills. PULMONARY: No current shortness of breath. CARDIOVASCULAR: Intermittent chest pain. GASTROINTESTINAL: No vomiting. GENITOURINARY: No hematuria. MUSCULOSKELETAL: Degenerative joint disease. PSYCHIATRIC: The patient has depression. NEUROLOGIC: ____ PHYSICAL EXAMINATION: VITAL SIGNS: Temperature of 97.4, blood pressure 113/59, pulse 67, respirations 20, saturation 96%. GENERAL: The patient is alert, awake, complaining of intermittent chest pain. NECK: JVP approximately 8 to 9 cm of water. CHEST: Fair air movement throughout. HEART: Regular rate and rhythm. Normal S1, S2, I/ systolic murmur. Nondisplaced PMI. ABDOMEN: Positive bowel sounds, soft. EXTREMITIES: No edema, 1+ pulses bilateral posterior tibial. LABORATORIES: Most recent from today, sodium 104, potassium 4.1, creatinine 0.57, BUN of 11, white c ount 6.4, hemoglobin 13.0, platelet count of 124. IMAGING STUDIES: As above in HPI. Imaging studies have been reviewed. ECG: As above in HPI. No further electrocardiograms for my review at this time. IMPRESSION: 1. Chest pain, assess for acute coronary syndrome with negative troponins x3 at this time with inter mittent ongoing chest pain, multiple cardiac risk factors. 2. Abnormal electrocardiogram with nonspecific ST-T wave abnormalities, assess for acute coronary sy ndrome. 3. Hypertension, under reasonable control. 4. Dyslipidemia. 5. Bradycardia. 6. Diabetes mellitus. RECOMMENDATIONS: 1. At this time, we would maintain patient on telemetry monitoring to follow rhythm and rate closely . 2. Continue patient's aspirin for prophylaxis of cardiac events. Continue the patient's current sta tin, adjust it according to a fasting lipid panel to be checked. 3. Continue the patient's low dose MARYLIN inhibitor, following blood pressure closely. 4. Patient has been placed in for a cardiac stress test, which I will proceed with at this time to jossy cazares assess possibility of significant obstructive coronary artery disease lending to symptoms of c hest pain and abnormal electrocardiographic findings. Admit to the hospital and follow up patient's 2D echo done for assessment of ejection fraction, wall motion and any major valvular abnormalities. Dictated By: CARLEEN BURDICK/KENYATTA Conf#: [id number] DID#: [id number] CC: TRIPP OBANDO MD;*EndCC*
[2019-04-01] MEDS: INSULIN ASPART [NOVOLOG] 3 ML PEN SC SCH ×7 (07:41→20:35)
[2019-04-01] MEDS: INSULIN GLARGINE [LANTus] (100 UNITS/ML) SYG SC SCH (07:55)
[2019-04-01] MEDS: BENAZEPRIL 5 MG TAB PO SCH (08:01)
[2019-04-01] MEDS: ASPIRIN 81 MG TAB PO SCH (08:10)
[2019-04-01] MEDS: SERTRALINE 50 MG TAB PO SCH (08:10)
[2019-04-01] MEDS: ENOXAPARIN 40 MG/0.4 ML SYG SC SCH (08:20)
--- NOTE | 2019-04-01 11:07 | PN ---
Date/Time of Note Date/Time of Note DATE: 04/01/19 TIME: 11:04 Assessment/Plan VTE Prophylaxis Risk score (from Ns)>0 risk: 3 SCD applied (from Ns): Yes Pharmacological prophylaxis: LMWH Lines/Catheters IV Catheter Type (from Nrs): Saline Lock Assessment/Plan Hospital Course Assessment and plan 1. Chest pain. No ACS. Troponin negative. Lexiscan stress test with no evidence of perfusion defect and EF at stress is greater than 70%. Continue with thread weaver recommendations 2. Abdominal pain. Patient did have ultrasound of the abdomen showing new dilation of pancreatic duct. CT scan of the abdomen was ordered. We will follow-up to exclude any pancreatic mass. 3. Diabetes. Continue on insulin regimen. Will adjust as needed 4. Hyperlipidemia. Continue on statin medication. 5. History of hypertension. Will provide with antihypertensives 6. History of depression. Continue on Zoloft. Disposition plan. Follow-up on abdominal imaging. Further recommendations pending clinical course. Discussed POC with Dr. Crandall Result Diagram: 03/31/19 0537 03/31/19 0537 Results 24hrs Laboratory Tests Test 03/31/19 13:47 03/31/19 17:08 03/31/19 22:18 04/01/19 02:33 Bedside Glucose 126 292 H 211 156 Test 04/01/19 07:39 Bedside Glucose 162 Subjective 24 Hr Interval Summary Free Text/Dictation Reports some epigastric pain. Denies any chest pain. No difficulty with br eathing. Exam/Review of Systems Exam Vitals Vital Signs Date Temp Pulse Resp B/P (MAP) Pulse Ox O2 O2 Flow FiO2 Time Delivery Rate 04/01/19 52 08:01 04/01/19 98.3 20 106/55 96 07:30 (72) 03/31/19 Room Air 03:42 Intake and Output 03/31/19 03/31/19 04/01/19 1515:00 23:00 07:00 IntakeIntake Total 950 ml 100 ml BalanceBalance 950 ml 100 ml Constitutional: alert, oriented Psych: nl mood/affect Head: normocephalic Neck: supple Respiratory: clear to auscultation Cardiovascular: regular rate and rhythm Gastrointestinal: soft, non-tender Neurological: CARTRIDGE FILLER II-XII intact, nl speech Results Results 24hrs Laboratory Tests Test 03/31/19 13:47 03/31/19 17:08 03/31/19 22:18 04/01/19 02:33 Bedside Glucose 126 292 H 211 156 Test 04/01/19 07:39 Bedside Glucose 162 Medications Medication Current Medications IV Flush (NS 3 ml) 3 ml PER PROTOCOL IV ; Start 03/29/19 at 03:30 Ondansetron HCl (Zofran Inj) 4 mg Q6H PRN IV NAUSEA/VOMITING; Start 03/29/19 at 03:30 Aspirin (Aspirin) 81 mg DAILY PO Last administered on 04/01/19 08:10; Admin Dose 81 MG; Start 03/29/19 at 09:00 Nitroglycerin (Nitroglycerin (Sl Tab) 0.4 Mg) 1 tab Q5M PRN SL .CHEST PAIN; Start 03/29/19 at 03:30 Acetaminophen (Tylenol Tab) 650 mg Q6H PRN PO .PAIN 1-3 OR TEMP Last administered on 03/31/19 17:15; Admin Dose 650 MG; Start 03/29/19 at 03:30 Enoxaparin Sodium (Lovenox) 40 mg DAILY SC Last administered on 04/01/19 08:20; Admin Dose 40 MG; Start 03/29/19 at 09:00 Albuterol/ Ipratropium (Duoneb) 3 ml Q2H RESP THERAPY PRN HHN SHORTNESS OF BREATH; Start 03/29/19 at 03:30 Diagnostic Test (Pha) (Accu-Chek) 1 ea 02 XX Last administered on 04/01/19 02:35; Admin Dose 1 EA; Start 03/30/19 at 02:00 Insulin Aspart (Novolog Insulin Pen) NOVOLOG *MILD* ALGORITHM WITH MEALS BEDTIME SC Last administered on 04/01/19 07:55; Admin Dose 1 UNIT; Start 03/29/19 at 07:55 Amitriptyline HCl (Elavil) 25 mg QHS PO Last administered on 03/31/19 22:23; Admin Dose 25 MG; Start 03/29/19 at 21:00 Atorvastatin Calcium (Lipitor) 40 mg QHS PO Last administered on 03/31/19 22:23; Admin Dose 40 MG; Start 03/29/19 at 21:00 Latanoprost (Xalatan) 1 drop QHS BOTH EYES Last administered on 03/31/19 22:23; Admin Dose 1 DROP; Start 03/29/19 at 21:00 Sertraline HCl (Zoloft) 25 mg DAILY PO Last administered on 04/01/19 08:10; Admin Dose 25 MG; Start 03/29/19 at 09:00 Benazepril HCl (Lotensin) 2.5 mg DAILY PO Last administered on 03/31/19 08:09; Admin Dose 2.5 MG; Start 03/30/19 at 09:00 Ibuprofen (Motrin) 600 mg Q6H PRN PO MILD PAIN LEVEL 1-3; Start 03/29/19 at 18:00 Insulin Aspart (Novolog Insulin Pen) 2 unit WITH MEALS SC Last administered on 03/31/19 17:21; Admin Dose 2 UNIT; Start 03/30/19 at 17:55 Insulin Glargine (Lantus) 9 units DAILY@0800 SC Last administered on 04/01/19 07:55; Admin Dose 9 UNITS; Start 03/31/19 at 08:00 TODD SEGOVIA NP Apr 01, 2019 11:07
--- NOTE | 2019-04-01 13:51 | CONS ---
Consult Date/Type/Reason Admit Date/Time Mar 30, 2019 at 14:07 Initial Consult Date Date/Time of Note DATE: 04/01/19 TIME: 13:49 Subjective NO acute events - pt comfortable - r/o [place] - rate better on tele. ROS: No fever, no chills, no nausea, no vomiting, no diarrhea/constipation No recent weight changes No chest pain, no PND, no orthopnea No dizziness, blurred vision No thirst, no heat or cold intolerance Objective Vitals Vital Signs Date Temp Pulse Resp B/P (MAP) Pulse Ox O2 O2 Flow FiO2 Time Delivery Rate 04/01/19 98.7 61 20 110/57 95 11:42 (74) 03/31/19 Room Air 03:42 Intake and Output 03/31/19 03/31/19 04/01/19 1515:00 23:00 07:00 IntakeIntake Total 950 ml 100 ml BalanceBalance 950 ml 100 ml Exam General: WN/WD/NAD, AOx 3 HEENT: Unicetric/atraumatic/EOMI (follows commands) NECK: JVD elevated, no thyromegaly Lymph: no lymphadenopathy HEART: regular with no S3, II/ systolic murmur at apex LUNGS: Coarse sounds ABD: soft, NT, ND, +BS : Intact Neuro: non focal SKIN: chronic changes EXT: trace edema Results/Medications Result Diagram: 03/31/1937 03/31/19 0537 Results 24 hrs Laboratory Tests Test 03/31/19 17:08 03/31/19 22:18 04/01/19 02:33 04/01/19 07:39 Bedside Glucose 292 H 211 156 162 Test 04/01/19 11:13 Bedside Glucose 139 Home Meds Active Scripts Aspirin (Aspirin) 81 Mg Chew, 81 MG PO DAILY for 30 Days, #30 TAB Prov:SHARON OBANDO MD 03/30/19 Acetaminophen* (Tylenol*) 325 Mg Tablet, 650 MG PO Q6H PRN for .PAIN 1-3 OR TEMP for 10 Days, TAB Prov:SHARON OBANDO MD 03/30/19 Benazepril Hcl* (Benazepril Hcl*) 5 Mg Tablet, 2.5 MG PO DAILY for 14 Days, #14 TAB Prov:SHARON OBANDO MD 03/30/19 Ibuprofen* (Motrin*) 600 Mg Tab, 600 MG PO Q6H PRN for PAIN AND OR ELEVATED TEMP, #30 TAB Prov:TAYLOR MAGUIRE MD 02/06/19 Reported Medications Bimatoprost* (Lumigan*) 0.01%-2.5 Ml Opht Drops, 1 DROP BOTH EYES HS, EA 03/29/19 Bimatoprost* (Lumigan*) 0.01%-2.5 Ml Opht Drops, for 28 Days 03/29/19 Tobramycin-Dexamethasone (Tobramycin-Dexamethasone Ophth) 0.3%-0.1% - 5 Ml Drops.susp, for 20 Days 03/29/19 Atorvastatin* (Atorvastatin*) 40 Mg Tablet, 40 MG PO QHS, #30 TAB 02/06/19 Sertraline Hcl* (Sertraline Hcl*) 25 Mg Tablet, 25 MG PO DAILY, #30 TAB 02/06/19 Amitriptyline Hcl* (Amitriptyline Hcl*) 25 Mg Tablet, 25 MG PO QHS, #30 TAB 02/06/19 Insulin Aspart* (Novolog Insulin Pen*) 100 Unit/Ml Soln, 15 UNIT SC WITH MEALS, EA QAM AND QPM 01/13/19 Latanoprost (Latanoprost) 2.5 Ml Drops, 1 DROP BOTH EYES QHS, #1 BOTTLE 01/13/19 Insulin Glargine,Hum.rec.anlog (Basaglar Kwikpen U-100) 100 Unit/1 Ml Insuln.pen, 40 UNIT SQ QHS 01/13/19 Liraglutide (Victoza 3-Darin) 0.6 Mg/0.1 Ml Pen.injctr, 1.2 MG SQ NOON, SYR 01/13/19 Discontinued Reported Medications Metformin Hcl* (Metformin Hcl*) 1,000 Mg Tablet, 1000 MG PO WITH BREAKFAST DINNE, #60 TAB 02/06/19 Benazepril Hcl* (Benazepril Hcl*) 5 Mg Tablet, 5 MG PO DAILY, #30 TAB 02/06/19 Discontinued Scripts Ciprofloxacin Hcl* (Ciprofloxacin Hcl*) 500 Mg Tablet, 500 MG PO BID for 10 Days, TAB Prov:TAYLOR MAGUIRE MD 02/06/19 Medications Current Medications IV Flush (NS 3 ml) 3 ml PER PROTOCOL IV ; Start 03/29/19 at 03:30 Ondansetron HCl (Zofran Inj) 4 mg Q6H PRN IV NAUSEA/VOMITING; Start 03/29/19 at 03:30 Aspirin (Aspirin) 81 mg DAILY PO Last administered on 04/01/19 08:10; Admin Dose 81 MG; Start 03/29/19 at 09:00 Nitroglycerin (Nitroglycerin (Sl Tab) 0.4 Mg) 1 tab Q5M PRN SL .CHEST PAIN; Start 03/29/19 at 03:30 Acetaminophen (Tylenol Tab) 650 mg Q6H PRN PO .PAIN 1-3 OR TEMP Last administered on 03/31/19 17:15; Admin Dose 650 MG; Start 03/29/19 at 03:30 Enoxaparin Sodium (Lovenox) 40 mg DAILY SC Last administered on 04/01/19 08:20; Admin Dose 40 MG; Start 03/29/19 at 09:00 Albuterol/ Ipratropium (Duoneb) 3 ml Q2H RESP THERAPY PRN HHN SHORTNESS OF BREATH; Start 03/29/19 at 03:30 Diagnostic Test (Pha) (Accu-Chek) 1 ea 02 XX Last administered on 04/01/19 02:35; Admin Dose 1 EA; Start 03/30/19 at 02:00 Insulin Aspart (Novolog Insulin Pen) NOVOLOG *MILD* ALGORITHM WITH MEALS BEDTIME SC Last administered on 04/01/19 07:55; Admin Dose 1 UNIT; Start 03/29/19 at 07:55 Amitriptyline HCl (Elavil) 25 mg QHS PO Last administered on 03/31/19 22:23; Admin Dose 25 MG; Start 03/29/19 at 21:00 Atorvastatin Calcium (Lipitor) 40 mg QHS PO Last administered on 03/31/19 22:23; Admin Dose 40 MG; Start 03/29/19 at 21:00 Latanoprost (Xalatan) 1 drop QHS BOTH EYES Last administered on 03/31/19 22:23; Admin Dose 1 DROP; Start 03/29/19 at 21:00 Sertraline HCl (Zoloft) 25 mg DAILY PO Last administered on 04/01/19 08:10; Admin Dose 25 MG; Start 03/29/19 at 09:00 Benazepril HCl (Lotensin) 2.5 mg DAILY PO Last administered on 03/31/19at 08:09; Admin Dose 2.5 MG; Start 03/30/19 at 09:00 Ibuprofen (Motrin) 600 mg Q6H PRN PO MILD PAIN LEVEL 1-3; Start 03/29/19 at 18:00 Insulin Aspart (Novolog Insulin Pen) 2 unit WITH MEALS SC Last administered on 04/01/19at 11:27; Admin Dose 2 UNIT; Start 03/30/19 at 17:55 Insulin Glargine (Lantus) 9 units DAILY@0800 SC Last administered on 04/01/19at 07:55; Admin Dose 9 UNITS; Start 03/31/19 at 08:00 Assessment/Plan Hospital Course (Demo Recall) 1. Chest pain, assess for acute coronary syndrome with negative troponins x3 at this time with intermittent ongoing chest pain, multiple cardiac risk factors- no classic ischemai sx, troponin negative - med rx to follow. 2. Abnormal electrocardiogram with nonspecific ST-T wave abnormalities, assess for acute coronary syndrome. R/O [place]. 3. Hypertension, under reasonable control - better now. 4. Dyslipidemia- Rx to goal. 5. Bradycardia - HR better, no indication for pacer. 6. Diabetes mellitus - on meds, keep euglycemic. EVI AVILA MD Apr 01, 2019 13:51
--- NOTE | 2019-04-01 15:19 | RADRPT ---
Echocardiogram Report Patient Name: Claudia OROZCOnt ID: [id number] : 1955 (63y 9m)Study Date: 03/31/2019 2:19:19 PM Gender: FAccession #: [id number] Tech: Francisca Crenshaw [facility] Location: [facility] Ref.Physician: CARLEEN SANDRA Height(Cm): BSA: Weight(Kg): Quality: AdequateOrder Physician: CARLEEN SANDRA Account #: Procedures: Echocardiographic Report: Transthoracic echocardiogram with complete 2D, M-Mode, and doppler examination. Indications: Chest Pain. Measurements: 2D/M Mode Doppler Measurement Value Normal Range Measurement Value Normal Range LVIDd 2D 3.4 [ 3.8 - 5.2 ] cm AV Peak Jeff 1.6 [ 100.0 - 170.0 ] cm/sec LVIDs 2D 2.3 [ 2.2 - 3.5 ] cm AV Peak PG 11.0 [ 2.0 - 9.0 ] mmHg LVPWd 2D 0.9 [ 0.6 - 0.9 ] cm LVOT Peak Jeff 1.3 [ 70.0 - 110.0 ] cm/sec IVSd 2D 1.3 [ 0.6 - 0.9 ] cm LVOT Peak PG 7.0 [ 2.0 - 6.0 ] mmHg AoR Diam 2D 2.8 [ 2.3 - 3.1 ] cm MV E Peak Jeff 0.8 [ 60.0 - 130.0 ] cm/sec LA Dimen 2D 3.1 [ 2.7 - 3.8 ] cm MV A Peak Jeff 0.9 [ 100.0 - 120.0 ] cm/sec MV E/A 0.8 [ 0.8 - 1.5 ] ratio MV Decel Time 257 [ 104 - 258 ] msec Lat E` Jeff 0.1 [ 10.0 - 15.0 ] cm/sec Lateral E/E` 6.4 [ 1.0 - 2.0 ] ratio Med E` Jeff 0.1 cm/sec MV E/A 0.8 [ 0.8 - 1.5 ] ratio TR Peak Jeff 2.3 [ 100.0 - 280.0 ] cm/sec TR Peak PG 22.0 mmHg RVSP 25.0 [ 10.0 - 36.0 ] mmHg RA Pressure 3.0 mmHg Findings: Left Ventricle: Normal left ventricular systolic function. Normal left ventricular cavity size. Normal left ventricular wall thickness. Mild asymmetric septal hypertrophy. Ejection fraction is visually estimated at 60-65 %. Tissue Doppler/Mitral Doppler indices are consistent with impaired relaxation (Stage I diastolic dysfunction). Right Ventricle: Normal right ventricular size. Normal right ventricular systolic function. Left Atrium: The left atrium is normal in size. Right Atrium: The right atrium is normal in size. Mitral Valve: Normal appearance and function of the mitral valve with trace physiologic regurgitation. Aortic Valve: Normal appearance of the aortic valve. No significant aortic stenosis or insufficiency. Tricuspid Valve: Normal appearance of the tricuspid valve. The estimated Peak RVSP is 25 mmHg. There is trace tricuspid regurgitation. Pulmonic Valve: Normal pulmonic valve appearance. Pericardium: Normal pericardium with no significant pericardial effusion. Aorta: Normal aortic root. IVC: Normal size and normal respiratory collapse consistent with normal right atrial pressure. Conclusions: Normal left ventricular systolic function. Normal left ventricular cavity size. Normal left ventricular wall thickness. Mild asymmetric septal hypertrophy. Ejection fraction is visually estimated at 60-65 %. Tissue Doppler/Mitral Doppler indices are consistent with impaired relaxation (Stage I diastolic dysfunction). Normal appearance and function of the mitral valve with trace physiologic regurgitation. Normal appearance of the tricuspid valve. The estimated Peak RVSP is 25 mmHg. There is trace tricuspid regurgitation. Electronically Signed By: Carleen Sandra 2019-04-01 15:18:19 PDT
[2019-04-01] MEDS: LATANOPROST 0.005% 2.5 ML OPH BOTH EYES SCH (20:21)
[2019-04-01] MEDS: ATORVASTATIN 40 MG TAB PO SCH (20:22)
[2019-04-01] MEDS: AMITRIPTYLINE 25 MG TAB PO SCH (20:22)
[2019-04-01] MEDS ORDERED: AL HYDROX/MG HYDROX/SIMETH 30 ML CUP PO PRN (21:00)
[2019-04-02] VITALS (7 sets, daily range): BP systolic 101–121; BP diastolic 55–64; PULSE 50–69; RESP 18–20
[2019-04-02] MEDS: ACCU-CHEK XX SCH (02:45)
[2019-04-02] MEDS: INSULIN GLARGINE [LANTus] (100 UNITS/ML) SYG SC SCH (07:50)
[2019-04-02] MEDS: INSULIN ASPART [NOVOLOG] 3 ML PEN SC SCH ×4 (07:50→11:38)
[2019-04-02] MEDS: SERTRALINE 50 MG TAB PO SCH (08:20)
[2019-04-02] MEDS: ASPIRIN 81 MG TAB PO SCH (08:20)
[2019-04-02] MEDS: ENOXAPARIN 40 MG/0.4 ML SYG SC SCH (08:24)
[2019-04-02] MEDS: BENAZEPRIL 5 MG TAB PO SCH (08:34)
--- NOTE | 2019-04-02 13:47 | CONS ---
Assessment/Plan Assessment/Plan Hospital Course (Demo Recall) IMPRESSION: 1. Chest pain, assess for acute coronary syndrome with negative troponins x3 at this time with intermittent ongoing chest pain, multiple cardiac risk factors.- Lexiscan with no ischemi and NL EF this admit 2. Abnormal electrocardiogram with nonspecific ST-T wave abnormalities, assess for acute coronary syndrome. 3. Hypertension, under reasonable control. 4. Dyslipidemia. 5. Bradycardia. 6. Diabetes mellitus. 7. Pancreatic duct dilitation Recc: -on Tele -Contineu asa/statin -Contikue low dose ACEI as tolerated only and may need to be d/c'd -ok for d/c from cardiac standpoint Consultation Date/Type/Reason Admit Date/Time Mar 30, 2019 at 14:07 Initial Consult Date 04/01/19 Type of Consult Cardiology Reason for Consultation abnl ecg Requesting Provider: SHARON OBANDO MD Date/Time of Note DATE: 04/02/19 TIME: 13:43 Exam/Review of Systems Vital Signs Vitals Vital Signs Date Temp Pulse Resp B/P (MAP) Pulse Ox O2 O2 Flow FiO2 Time Delivery Rate 04/02/19 98.1 68 20 121/64 96 Room Air 11:44 (83) Intake and Output 04/01/19 04/01/19 04/02/19 1515:00 23:00 07:00 IntakeIntake Total 450 ml 350 ml 100 ml BalanceBalance 450 ml 350 ml 100 ml Exam Exam Review of Systems: CONSTITUTIONAL: No fevers, chills. PULMONARY: No sob CARDIOVASCULAR: No chest pain/palpitations GASTROINTESTINAL: No nausea/vomiting. GENITOURINARY: No hematuria/dysuria. MUSCULOSKELETAL: No myagias/arthalgias. PSYCHIATRIC: The patient denies depression. NEUROLOGIC: No weakness Constitutional: alert, oriented Psych: no complaints Head: normocephalic ENMT: mucosa pink and moist Neck: supple, jvd (9 cm water) Respiratory: diminished breath sounds Cardiovascular: regular rate and rhythm Gastrointestinal: soft, non-tender Musculoskeletal: muscle tone (normal) Extremities: edema (none) Neurological: other (No focal defiicts) Labs Result Diagram: 04/02/19 0556 04/02/19 0556 Results 24hrs Laboratory Tests Test 04/01/19 17:03 04/01/19 20:18 04/02/19 02:38 04/02/19 05:56 Bedside Glucose 347 H 267 H 214 White Blood Count 6.7 Red Blood Count 4.36 Hemoglobin 13.1 Hematocrit 38.7 Mean Corpuscular 88.8 Volume Mean Corpuscular 30.0 Hemoglobin Mean Corpuscular 33.9 Hemoglobin Concent Red Cell 13.5 Distribution Width Platelet Count 129 L Mean Platelet Volume 12.1 H Immature 0.400 Granulocytes % Neutrophils % 48.4 Lymphocytes % 41.1 Monocytes % 7.0 Eosinophils % 2.5 Basophils % 0.6 Nucleated Red Blood 0.0 Cells % Immature 0.030 Granulocytes # Neutrophils # 3.2 Lymphocytes # 2.8 Monocytes # 0.5 Eosinophils # 0.2 Basophils # 0.0 Nucleated Red Blood 0.0 Cells # Sodium Level 142 Potassium Level 4.6 Chloride Level 104 Carbon Dioxide Level 30 Anion Gap 8 Blood Urea Nitrogen 10 Creatinine 0.55 Est Glomerular > 60 Filtrat Rate mL/min Glucose Level 192 Calcium Level 8.9 Test 04/02/19 07:42 04/02/19 11:30 Bedside Glucose 190 271 H Medications Medications Current Medications IV Flush (NS 3 ml) 3 ml PER PROTOCOL IV ; Start 03/29/19 at 03:30 Ondansetron HCl (Zofran Inj) 4 mg Q6H PRN IV NAUSEA/VOMITING; Start 03/29/19 at 03:30 Aspirin (Aspirin) 81 mg DAILY PO Last administered on 04/02/19at 08:20; Admin Dose 81 MG; Start 03/29/19 at 09:00 Nitroglycerin (Nitroglycerin (Sl Tab) 0.4 Mg) 1 tab Q5M PRN SL .CHEST PAIN; Start 03/29/19 at 03:30 Acetaminophen (Tylenol Tab) 650 mg Q6H PRN PO .PAIN 1-3 OR TEMP Last administered on 03/31/19at 17:15; Admin Dose 650 MG; Start 03/29/19 at 03:30 Enoxaparin Sodium (Lovenox) 40 mg DAILY SC Last administered on 04/02/19at 08:24; Admin Dose 40 MG; Start 03/29/19 at 09:00 Albuterol/ Ipratropium (Duoneb) 3 ml Q2H RESP THERAPY PRN HHN SHORTNESS OF BREATH; Start 03/29/19 at 03:30 Diagnostic Test (Pha) (Accu-Chek) 1 ea 02 XX Last administered on 04/02/19 02:45; Admin Dose 1 EA; Start 03/30/19 at 02:00 Insulin Aspart (Novolog Insulin Pen) NOVOLOG *MILD* ALGORITHM WITH MEALS BEDTIME SC Last administered on 04/02/19 11:38; Admin Dose 4 UNIT; Start 03/29/19 at 07:55 Amitriptyline HCl (Elavil) 25 mg QHS PO Last administered on 04/01/19 20:22; Admin Dose 25 MG; Start 03/29/19 at 21:00 Atorvastatin Calcium (Lipitor) 40 mg QHS PO Last administered on 04/01/19 20:22; Admin Dose 40 MG; Start 03/29/19 at 21:00 Latanoprost (Xalatan) 1 drop QHS BOTH EYES Last administered on 04/01/19 20:21; Admin Dose 1 DROP; Start 03/29/19 at 21:00 Sertraline HCl (Zoloft) 25 mg DAILY PO Last administered on 04/02/19 08:20; Admin Dose 25 MG; Start 03/29/19 at 09:00 Benazepril HCl (Lotensin) 2.5 mg DAILY PO Last administered on 03/31/19 08:09; Admin Dose 2.5 MG; Start 03/30/19 at 09:00 Ibuprofen (Motrin) 600 mg Q6H PRN PO MILD PAIN LEVEL 1-3; Start 03/29/19 at 18:00 Insulin Aspart (Novolog Insulin Pen) 2 unit WITH MEALS SC Last administered on 04/02/19 11:37; Admin Dose 2 UNIT; Start 03/30/19 at 17:55 Insulin Glargine (Lantus) 9 units DAILY@0800 SC Last administered on 04/02/19 07:50; Admin Dose 9 UNITS; Start 03/31/19 at 08:00 Al Hydrox/Mg Hydrox/Simethicone (Mag-Al Plus) 30 ml Q6H PRN PO GASTROINTESTINAL UPSET Last administered on 04/01/19 20:59; Admin Dose 30 ML; Start 04/01/19 at 21:00 CARLEEN QUINN Apr 02, 2019 13:47
--- NOTE | 2019-04-06 11:19 | DS ---
Date/Time of Note Date/Time of Note DATE: 04/06/19 TIME: 11:16 Discharge Summary Admission/Discharge Info Admit Date/Time Mar 30, 2019 at 14:07 Discharge Date/Time Apr 02, 2019 at 14:35 Patient Condition: Stable Hospital Course this is a 63-year-old female with history of hypertension, insulin-dependent diabetes, hyperlipidemia, depression, came to the hospital due to reports of chest pain for 1 day duration. She reported that it was mainly on the left side with radiation to the left upper extremity and shoulder. She also had some associated shortness of breath. Patient was seen by pump servicer helper for this issue. She was ruled out for ACS. Troponins were negative. She did have a Lexiscan stress test with no evidence of perfusion defect and EF at stress greater than 70%. She was optimized with her cardiovascular medications. She was noted with some abdominal pain. She had a ultrasound of the abdomen showing dilation of the pancreatic duct. We did get a CT scan of the abdomen to rule out any kind of abdominal mass and further CT scan of the abdomen and pelvis did not reveal any evidence of acute intra-abdominal/pelvic inflammatory process. There is no evidence of bowel obstruction. The pancreas appeared to be normal and no discernible pancreatic ductal dilation noted. She was otherwise optimized medically with insulin for diabetes and statin medication for hype rlipidemia. She was also resumed on antihypertensives for high blood pressure and antidepressants for her history depression. During her course of stay she did improve. The plan of care was discussed with the patient and patient verbalized understanding. On the day of discharge patient was in stable condition Discussed POC with Dr. Crandall [place] Meds Active Scripts Aspirin (Aspirin) 81 Mg Chew, 81 MG PO DAILY for 30 Days, #30 TAB Prov:SHARON OBANDO MD 03/30/19 Acetaminophen* (Tylenol*) 325 Mg Tablet, 650 MG PO Q6H PRN for .PAIN 1-3 OR TEMP for 10 Days, TAB Prov:SHARON OBANDO MD 03/30/19 Benazepril Hcl* (Benazepril Hcl*) 5 Mg Tablet, 2.5 MG PO DAILY for 14 Days, #14 TAB Prov:SHARON OBANDO MD 03/30/19 Ibuprofen* (Motrin*) 600 Mg Tab, 600 MG PO Q6H PRN for PAIN AND OR ELEVATED TEMP, #30 TAB Prov:TAYLOR MAGUIRE MD 02/06/19 Reported Medications Bimatoprost* (Lumigan*) 0.01%-2.5 Ml Opht Drops, 1 DROP BOTH EYES HS, EA 03/29/19 Bimatoprost* (Lumigan*) 0.01%-2.5 Ml Opht Drops, for 28 Days 03/29/19 Tobramycin-Dexamethasone (Tobramycin-Dexamethasone Ophth) 0.3%-0.1% - 5 Ml Drops.susp, for 20 Days 03/29/19 Atorvastatin* (Atorvastatin*) 40 Mg Tablet, 40 MG PO QHS, #30 TAB 02/06/19 Sertraline Hcl* (Sertraline Hcl*) 25 Mg Tablet, 25 MG PO DAILY, #30 TAB 02/06/19 Amitriptyline Hcl* (Amitriptyline Hcl*) 25 Mg Tablet, 25 MG PO QHS, #30 TAB 02/06/19 Insulin Aspart* (Novolog Insulin Pen*) 100 Unit/Ml Soln, 15 UNIT SC WITH MEALS, EA QAM AND QPM 01/13/19 Latanoprost (Latanoprost) 2.5 Ml Drops, 1 DROP BOTH EYES QHS, #1 BOTTLE 01/13/19 Insulin Glargine,Hum.rec.anlog (Basaglar Kwikpen U-100) 100 Unit/1 Ml Insuln.pen, 40 UNIT SQ QHS 01/13/19 Liraglutide (Victoza 3-Darin) 0.6 Mg/0.1 Ml Pen.injctr, 1.2 MG SQ NOON, SYR 01/13/19 Discontinued Reported Medications Metformin Hcl* (Metformin Hcl*) 1,000 Mg Tablet, 1000 MG PO WITH BREAKFAST D YANIV, #60 TAB 02/06/19 Benazepril Hcl* (Benazepril Hcl*) 5 Mg Tablet, 5 MG PO DAILY, #30 TAB 02/06/19 Follow-up Plan appt primary 1wk Primary Care Provider Not On Staff Doctor Time spent on discharge: > 30 minutes TODD SEGOVIA NP Apr 06, 2019 11:19
== END 2019-04-02 14:35 | disposition home or self-care (01) | DRG 313 ==
LOC: E/R 23:35 → TEL 03-29 01:47 → OBSVTOIN 03-30 14:07
PROVIDERS: ADMIT Internal Medicine; ATTEND Internal Medicine
DX: R07.9 Chest pain, unspecified (principal); E88.81 Metabolic syndrome and other insulin resistance; F32.9 Major depressive disorder, single episode, unspecified; R00.1 Bradycardia, unspecified; I10 Essential (primary) hypertension; E78.5 Hyperlipidemia, unspecified; E11.9 Type 2 diabetes mellitus without complications; H53.8 Other visual disturbances; R94.31 Abnormal electrocardiogram [ECG] [EKG]; K86.89 Other specified diseases of pancreas; Z79.4 Long term (current) use of insulin; Z88.0 Allergy status to penicillin
CPT/HCPCS: 36415; 71045; 74176; 76705; 78452; 80048; 80053; 80061; 82550; 82553; 82962; 83036; 83690; 83735; 83880; 84100; 84443; 84484; 85025; 85378; 85610; 85730; 93005; 93017; 93306; 96374; 96375; G0378; A9500; A9505; J1650; J1815; J2270; J2405; J2785; J7030; J7040

== ENCOUNTER 2019-06-10 20:44 | Emergency (ER) | payer OTHER ==
[~2019-06-10] VITALS: Ht 157.5 cm; Wt 71.4 kg
[~2019-06-10 20:44] MED LIST changes: +ACET325T33 PO; +ASPI-831 PO; +BIMA2.5D; +BIMA2.5D BOTH EYES; -CIPR500T4 PO; -METF100010 PO; +TOBR5DRO14
[2019-06-10 21:12] VITALS: BP 129/61; PULSE 60; RESP 18; Ht 157.5 cm; Wt 71.4 kg
== END 2019-06-10 23:34 | disposition left against medical advice (07) ==
LOC: E/R 20:44
DX: Z53.21 Procedure and treatment not carried out due to patient leaving prior to being seen by health care provider (principal)
CPT/HCPCS: 93005